=== PATIENT | female | born 1985 | race African-American/Black ===

== ENCOUNTER 2017-02-17 01:39 | Inpatient (IN) | payer OTHER ==
[2017-02-17 01:51] VITALS: BMI 41.1
[2017-02-17] MEDS ORDERED: dilTIAZem HCL 50 MG/10 ML - 10 ML VIAL IVPUSH ONE ×2 (01:58→02:48)
[2017-02-17 02:01] LABS: BASOPHIL 0.9 % (0-2.0); EOSINOPHIL 2.4 % (0-4.5); MCH 25.8 pg (25.7-33.7); MCHC 32.1 g/dl (32.0-36.0); MEAN CELL VOLUME 80.3 fl (80-96); MEAN PLT VOLUME 8.1 fl (7.5-11.1); NEUTROPHILS 41.9 % (42.8-82.8); PLATELET COUNT 245 K/MM3 (134-434); RDW 13.7 % (11.6-15.6); WHITE BLOOD COUNT 7.5 K/mm3 (4.0-10.0)
--- NOTE | 2017-02-17 02:04 | PDOC ---
History of Present Illness - General History Source: Patient Exam Limitations: No Limitations - History of Present Illness Initial Comments: 02/17/17 02:05 Patient is a 31 year old female, , with a significant past medical history of hypertension and sleep apnea who presents to the ED with palpitations for 1 hour before presenting to the ED. Patient states that usually has episodes of palpitations that last for 5 minutes and resolve on their own. Patient reports palpitations with sudden onset that started 1 hour ago and she is still experiencing them while in the ED. Patient did not do her CPAP machine yesterday. Patient has had an ECHO and full cardiology work up by Dr. Vázquez and never was able to capture afib. SH: former smoker quit 10 years ago <Leonora Gan - Last Filed: 02/17/17 02:05> <Maegan Ochoa - Last Filed: 02/17/17 02:53> - General Chief Complaint: Chest Pain Stated Complaint: CHEST PAIN/DIFFICULTY BREATHING Time Seen by Provider: 02/17/17 01:56 Past History <Leonora Gan - Last Filed: 02/17/17 02:05> - Past Medical History HTN: Yes Other medical history: Vertigo - Immunization History Immunization Up to Date: No - Psycho/Social/Smoking Cessation Hx Anxiety: No Suicidal Ideation: No Smoking History: Former smoker Have you smoked in the past 12 months: No If you are a former smoker, when did you quit?: 2016 Information on smoking cessation initiated: No Hx Alcohol Use: No Drug/Substance Use Hx: No <Maegan Ochoa - Last Filed: 02/17/17 02:53> - Past Medical History Allergies/Adverse Reactions: Allergies Allergy/AdvReac Type Severity Reaction Status Date / Time No Known Allergies Allergy Verified 02/17/17 01:50 Home Medications: Ambulatory Orders Amlodipine Besylate [Norvasc -] 10 mg PO DAILY 02/17/17 Meclizine HCl [Antivert -] 25 mg PO DAILY 02/17/17 Review of Systems - Review of Systems Able to Perform ROS?: Yes Comments:: 02/17/17 02:05 GENERAL/CONSTITUTIONAL: No fever or chills. No weakness. HEAD, EYES, EARS, NOSE AND THROAT: No change in vision. No ear pain or discharge. No sore throat. CARDIOVASCULAR: (+)palpitations. No chest pain or shortness of breath. RESPIRATORY: No cough, wheezing, or hemoptysis. GASTROINTESTINAL: No nausea, vomiting, diarrhea or constipation. GENITOURINARY: No dysuria, frequency, or change in urination. MUSCULOSKELETAL: No joint or muscle swelling or pain. No neck or back pain. SKIN: No rash NEUROLOGIC: No headache, vertigo, loss of consciousness, or change in strength/ sensation. ENDOCRINE: No increased thirst. No abnormal weight change. HEMATOLOGIC/LYMPHATIC: No anemia, easy bleeding, or history of blood clots. ALLERGIC/IMMUNOLOGIC: No hives or skin allergy. <Leonora Gan - Last Filed: 02/17/17 02:05> *Physical Exam - Vital Signs Last Vital Signs Temp Pulse Resp BP Pulse Ox 98.3 F 66 18 153/97 100 02/17/17 01:47 02/17/17 01:47 02/17/17 01:47 02/17/17 01:47 02/17/17 01:47 - Physical Exam Comments: 02/17/17 02:06 GENERAL: Awake, alert, and fully oriented, in no acute distress HEAD: No signs of trauma EYES: PERRLA, EOMI, sclera anicteric, conjunctiva clear ENT: Auricles normal inspection, hearing grossly normal, nares patent, oropharynx clear without exudates. Moist mucosa NECK: Normal ROM, supple, no lymphadenopathy, JVD, or masses LUNGS: Breath sounds equal, clear to auscultation bilaterally. No wheezes, and no crackles HEART: Regular rate and rhythm, normal S1 and S2, no murmurs, rubs or gallops ABDOMEN: Soft, nontender, normoactive bowel sounds. No guarding, no rebound. No masses EXTREMITIES: Normal range of motion, no edema. No clubbing or cyanosis. No cords, erythema, or tenderness NEUROLOGICAL: Cranial nerves II through XII grossly intact. Normal speech, normal gait SKIN: Warm, Dry, normal turgor, no rashes or lesions noted. <Leonora Gan - Last Filed: 02/17/17 02:05> - Vital Signs Last Vital Signs Temp Pulse Resp BP Pulse Ox 98.3 F 66 18 153/97 100 02/17/17 01:47 02/17/17 01:47 02/17/17 01:47 02/17/17 01:47 02/17/17 01:47 <Maegan Ochoa - Last Filed: 02/17/17 02:53> ED Treatment Course - LABORATORY CBC & Chemistry Diagram: 02/17/17 01:50 02/17/17 01:50 - ADDITIONAL ORDERS Additional order review: 02/17/17 01:50 RBC 5.57 H MCV 80.3 MCHC 32.1 RDW 13.7 MPV 8.1 Neutrophils % 41.9 L Lymphocytes % 47.0 H Monocytes % 7.8 Eosinophils % 2.4 Basophils % 0.9 <Leonora Gan - Last Filed: 02/17/17 02:05> - LABORATORY CBC & Chemistry Diagram: 02/17/17 01:50 02/17/17 01:50 - RADIOLOGY Radiology Studies Ordered: Category Date Time Status CHEST X-RAY PORTABLE* [RAD] Stat Radiology 02/17/17 01:52 Ordered <Maegan Ochoa - Last Filed: 02/17/17 02:53> Medical Decision Making - Medical Decision Making 02/17/17 02:00 Pt comes with new onset AFIB. She has been complaining of palpitations and she has had holtermonitors and she has seen 2 separate cardiologists on multiple occasions and nobody could ever see the AFIB until today. Paroxysmal afib places pt at risk for CVA. Pt understands this. We will treat the rapid afib with cardizem. Pt is on norvasc 10mg daily. She is compliant with her medication. Pt is tearful in the ER because she is thankful taht we diagnosed her problem, but she is sad that it is a bad diagnosis. Pt will be admitted to the hospitalist, as her PMD [facility] is not affiliated. She has been seeing Dr. Aj and I will place a consult in the computer so that he sees her this admission. 02/17/17 02:13 Pt tells us that she has been a smoker for 10 years and states that she was told for years that she has HTN, and yet she never took meds until last year. Pt also states that she has been gaining weight. Now she is CPAP which she uses at night, and tells me that last night she skipped her CPAP. 02/17/17 02:15 CBC normal; <Maegan Ochoa - Last Filed: 02/17/17 02:53> *DC/Admit/Observation/Transfer - Attestations Scribe Attestion: 02/17/17 02:06 Documentation prepared by PHOEBE Casarez, acting as electromedical equipment technician for Maegan Ochoa MD. <Leonora Gan - Last Filed: 02/17/17 02:05> - Discharge Dispostion Admit: Yes <Maegan Ochoa - Last Filed: 02/17/17 02:53> Diagnosis at time of Disposition: New onset atrial fibrillation, HTN (hypertension), Morbid (severe) obesity due to excess calories - Discharge Dispostion Condition at time of disposition: Guarded - Referrals Referrals: STAFF,NOT ON [Non Staff, Medical] -
[2017-02-17] MEDS ORDERED: SODIUM CHLORIDE 0.9% 500 ML INFUS.BAG IV ONE (02:11)
[2017-02-17 02:12] LABS: INR 0.95 (0.82-1.09); PROTHROMBIN TIME (PATIENT) 10.4 SEC (9.98-11.88)
[2017-02-17 02:15] LABS: ACTIVATED PTT 34.8 SECONDS (26.9-34.4)
[2017-02-17 02:22] LABS: URINE APPEARANCE SLCLOUDY; URINE BILIRUBIN NEGATIVE (NEGATIVE); URINE BLOOD NEGATIVE (NEGATIVE); URINE COLOR YELLOW; URINE GLUCOSE (UA) NEGATIVE (NEGATIVE); URINE KETONE NEGATIVE (NEGATIVE); URINE NITRITE NEGATIVE (NEGATIVE); URINE PROTEIN NEGATIVE (NEGATIVE); URINE UROBILINOGEN NEGATIVE E.U./dl (0.2-1.0)
[2017-02-17] MEDS: APIXABAN 5 MG TABLET PO SCH ×3 (02:23→22:21)
[2017-02-17 02:30] LABS: ALBUMIN 3.7 g/dl (3.4-5.0); ANION GAP 11 (8-16); BILIRUBIN,TOTAL 0.3 mg/dL (0.2-1.0); CALCIUM 8.6 mg/dL (8.5-10.1); CO2 29 mmol/L (21-32); COCKROFT - GAULT 174.2755; CREATININE 1.2 mg/dL (0.55-1.02); GLUCOSE,RANDOM 108 mg/dL (74-106); PHOSPHOROUS 3.5 mg/dL (2.5-4.9); SGPT/ALT 36 U/L (12-78); TOT PROT 7.7 g/dl (6.4-8.2)
[2017-02-17 02:31] LABS: URINE LEUK ESTERASE TRACE (NEGATIVE)
[2017-02-17 02:33] LABS: ALK PHOS 134 U/L (45-117); TROPONIN I < 0.02 ng/ml (0.00-0.05)
[2017-02-17 02:36] LABS: MAGNESIUM 2.1 mg/dL (1.8-2.4); SGOT/AST 26 U/L (15-37)
[2017-02-17 02:38] LABS: URINE BACTERIA RARE /hpf (NONE SEEN); URINE MUCUS FEW; URINE RBC 7 /hpf (0-3); URINE WBC 6 /hpf (3-5)
--- NOTE | 2017-02-17 02:55 | PN ---
Teaching Attending Note Name of Resident: Tarun Garner ATTENDING PHYSICIAN STATEMENT I saw and evaluated the patient. I reviewed the resident's note and discussed the case with the resident. I agree with the resident's findings and plan as documented. SUBJECTIVE: 31 yo F with pmhx of HTN, who presents with Palpitations. States she has had palpitations for one year and has undergone a extensive workup, including a recent echo. Notes she woke up with palpitations this morning and shortness of breath. No chest pain or pressure. No fevers or chills. States she had urinary frequency and urgency. OBJECTIVE: Physical: VS: Vital Signs Period Temp Pulse Resp BP Sys/Matthews Pulse Ox Last 24 Hr 98.3 F 66-147 18-21 153-171/97-108 100-100 GEN: NAD, resting in bed HEENT:NCAT, PERRL CARD: IRR S1, S2 RESP: CTAB ABD:BSX4, NTD to palpation EXT: - C/C/E EKG: Afib rate 110 CXR: Pending ASSESSMENT AND PLAN: 31 yo F with pmhx of HTN and Obesity who presented with palpitations found to be in Atrial Fib. 1.) Afib/?paroxysmal Afib - Trend EKG/Trop - Stat TSH - Cardiac monitoring - Unknown duration of Afib,- Eliquis received in ED - Cardiology Consulted - Echo results to be obtained - C/W Cardizem for rate control - FU CXR 2.) HTN - C/W Home meds 3.) UTI - Ucx - Ceftriaxone Rest as per resident note Admit to Med-Tele
--- NOTE | 2017-02-17 02:58 | HP ---
CHIEF COMPLAINT: PCP: [facility]: Dr Alves HISTORY OF PRESENT ILLNESS: 31 year old female with pmh of HTN, Sleep Apnea presented to the ED with complaint of palpitation. the symptoms wake patient up from sleep with severe chest pain 7/10, pressure substernal non radiating lasting 5mn, accompanied by healing of heart racing, shortness of breath, felling of impending doom and felling like about to pass out. The palpitation slow down and restarted again and lasted 10 mn the second time, she said she had had HR in 150's in prior episodes but this time around her heart was 180's, 190's at home. Pt said the chest pain is new but she has had palpitation on and off for the past year. Pt is currently seeing Dr Alves, she said she had an echo 2 months ago which she said was normal with EF 68%. She had holter studies in the past which did not show anything. Pt was supposed to see Dr Bridges for EPS studies. Pt also complained of fatigue, generalized weakness, tiredness, exercise intolerance, heat and cold intolerance, hair thinning, constipation, abdominal bloating, weight gain of 20lbs in last 2 weeks. She had seen an vegetable farmer and had thyroid function work up and thyroid biopsy before which were normal per her account. Pt also complained urinary frequency and urgency but no dysuria and no gross hematuria. ER course was notable for: (1) cardizem Iv 10mg (2) Eliquis 5mg Po BID (3) CXR, EKG showing AFIB Recent Travel: none PAST MEDICAL HISTORY: Sleep Apnea, HTN PAST SURGICAL HISTORY: Social History: Smoking: denies Alcohol:denies Drugs: denies Family History: diabetes, MVP, thyroid disease, cardiomyopathy Allergies No Known Allergies Allergy (Verified 02/17/17 01:50) HOME MEDICATIONS: Home Medications Medication Instructions Recorded Amlodipine Besylate [Norvasc -] 10 mg PO DAILY 02/17/17 Meclizine HCl [Antivert -] 25 mg PO DAILY 02/17/17 REVIEW OF SYSTEMS CONSTITUTIONAL: generalized weakness, malaise,weight change Absent: fever, chills, diaphoresis, loss of appetite HEENT: Absent: rhinorrhea, nasal congestion, throat pain, throat swelling, difficulty swallowing, mouth swelling, ear pain, eye pain, visual changes CARDIOVASCULAR: chest pain, palpitations, irregular heart rate, lightheadedness , Absent: syncope, peripheral edema RESPIRATORY: shortness of breath Absent: cough, dyspnea with exertion, orthopnea, wheezing, stridor, hemoptysis GASTROINTESTINAL: Absent: abdominal pain, abdominal distension, nausea, vomiting, diarrhea, constipation, melena, hematochezia GENITOURINARY: frequency, urgency Absent: dysuria, hesitancy, hematuria, flank pain, genital pain MUSCULOSKELETAL: Absent: myalgia, arthralgia, joint swelling, back pain, neck pain SKIN: Absent: rash, itching, pallor HEMATOLOGIC/IMMUNOLOGIC: Absent: easy bleeding, easy bruising, lymphadenopathy, frequent infections ENDOCRINE:unexplained weight gain, heat intolerance, cold intolerance Absent: unexplained weight loss NEUROLOGIC: Absent: headache, focal weakness or paresthesias, dizziness, unsteady gait, seizure, mental status changes, bladder or bowel incontinence PSYCHIATRIC: Absent: anxiety, depression, suicidal or homicidal ideation, hallucinations. PHYSICAL EXAMINATION Vital Signs - 24 hr 02/17/17 02/17/17 02/17/17 01:47 02:22 02:29 Temperature 98.3 F Pulse Rate 66 Pulse Rate [ 147 H Apical] Respiratory 18 21 Rate Blood Pressure 153/97 Blood Pressure 171/108 [Left Arm] O2 Sat by Pulse 100 100 Oximetry (%) 02/17/17 02:30 Temperature Pulse Rate Pulse Rate [ Apical] Respiratory Rate Blood Pressure Blood Pressure [Left Arm] O2 Sat by Pulse 100 Oximetry (%) GENERAL: Awake, alert, and fully oriented, in no acute distress. HEAD: Normal with no signs of trauma. EYES: Pupils equal, round and reactive to light, extraocular movements intact, sclera anicteric, conjunctiva clear. No lid lag. EARS, NOSE, THROAT: Ears normal, nares patent, oropharynx clear without exudates. Moist mucous membranes. NECK: Normal range of motion, supple without lymphadenopathy, JVD, or masses. LUNGS: Breath sounds equal, clear to auscultation bilaterally. No wheezes, and no crackles. No accessory muscle use. HEART:irregular rate and irregular rhythm, normal S1 and S2 without murmur, rub or gallop. ABDOMEN: Soft, obese, nontender, not distended, normoactive bowel sounds, no guarding, no rebound, no masses. No hepatomegaly or splenomegaly. MUSCULOSKELETAL: Normal range of motion at all joints. No bony deformities or tenderness. No CVA tenderness. UPPER EXTREMITIES: 2+ pulses, warm, well-perfused. No cyanosis. No clubbing. No peripheral edema. LOWER EXTREMITIES: 2+ pulses, warm, well-perfused. No calf tenderness. No peripheral edema. NEUROLOGICAL: Cranial nerves II-XII intact. Normal speech. Normal gait. PSYCHIATRIC: Cooperative. Good eye contact. Appropriate mood and affect. SKIN: Warm, dry, normal turgor, no rashes or lesions noted, normal capillary refill. Laboratory Results - last 24 hr 02/17/17 02/17/17 02/17/17 01:50 01:50 01:50 WBC 7.5 RBC 5.57 H Hgb 14.4 Hct 44.7 MCV 80.3 MCHC 32.1 RDW 13.7 Plt Count 245 MPV 8.1 Neutrophils % 41.9 L Lymphocytes % 47.0 H Monocytes % 7.8 Eosinophils % 2.4 Basophils % 0.9 INR 0.95 PTT (Actin FS) 34.8 H Sodium 142 Potassium 4.2 Chloride 102 Carbon Dioxide 29 Anion Gap 11 BUN 14 Creatinine 1.2 H Creat Clearance w eGFR 51.74 Random Glucose 108 H Calcium 8.6 Phosphorus 3.5 Magnesium 2.1 Total Bilirubin 0.3 AST 26 ALT 36 Alkaline Phosphatase 134 H Creatine Kinase 222 H Troponin I < 0.02 Total Protein 7.7 Albumin 3.7 Urine Color Urine Appearance Urine pH Urine Protein Urine Glucose (UA) Urine Ketones Urine Blood Urine Nitrite Urine Bilirubin Urine Urobilinogen Ur Leukocyte Esterase Urine RBC Urine WBC Ur Epithelial Cells Urine Bacteria Urine Mucus Urine HCG, Qual 02/17/17 02/17/17 02:00 02:10 WBC RBC Hgb Hct MCV MCHC RDW Plt Count MPV Neutrophils % Lymphocytes % Monocytes % Eosinophils % Basophils % INR PTT (Actin FS) Sodium Potassium Chloride Carbon Dioxide Anion Gap BUN Creatinine Creat Clearance w eGFR Random Glucose Calcium Phosphorus Magnesium Total Bilirubin AST ALT Alkaline Phosphatase Creatine Kinase Troponin I Total Protein Albumin Urine Color Yellow Urine Appearance Slcloudy Urine pH 5.0 Urine Protein Negative Urine Glucose (UA) Negative Urine Ketones Negative Urine Blood Negative Urine Nitrite Negative Urine Bilirubin Negative Urine Urobilinogen Negative Ur Leukocyte Esterase Trace H Urine RBC 7 Urine WBC 6 Ur Epithelial Cells Moderate Urine Bacteria Rare Urine Mucus Few Urine HCG, Qual Negative ASSESSMENT/PLAN: 31 year old female with pmh of HTN, Sleep Apnea presented to the ED with complaint of palpitation, shortness of breath and chest pressure. Pt was found to be in AFIB. Paroxismal AFIB [id number] score 2, consider high risk with yearly risk of stroke of 2.2%. Requires oral anticoagulation Received cardizem IV an Eliquis Po in ED Start Cardizem PO 30mg q6h Continue Eliquis Dr Almanza consulted Consider Echo if prior echo result not available from Dr alves Chest pain r/o ACS Consider Aspirin 325mg PO EKG showed no ST/twave changes Will repeat ekg in am Cardiac profile in am [facility] consult Generalized weakness r/o Hypothyroidism, vit b12 deficiency, Crhonic fatigue syndrome No electrolytes imbalance per chemistries result Pt is no longer on betablocker TSH in Am Vitamin B12 Folate Consider EBV, RAMSES, RF, and Lyme titers UTI UA with positive leuk est urinary frequency and urgency Will treat with ceftriaxone urine culture HTN Resume Norvac Sleep Apnea CPAP at night FEN Fluid: none electrolytes: no abnormalities Nutrition: low NA diet DVT prophylaxis: Eliquis Disposition: Admit to telemetry Visit type - Emergency Visit Emergency Visit: Yes ED Registration Date: 02/17/17 Care time: The patient presented to the Emergency Department on the above date and was hospitalized for further evaluation of their emergent condition. - New Patient This patient is new to me today: Yes Date on this admission: 02/17/17 - Critical Care Critical Care patient: No
[2017-02-17] MEDS ORDERED: dilTIAZem HCL 30 MG TABLET (FP) PO SCH (04:00)
[2017-02-17] MEDS ORDERED: dilTIAZem HCL 30 MG TABLET (FP) ONE ×2 (04:35→13:05)
[2017-02-17] MEDS: dilTIAZem HCL 30 MG TABLET (FP) PO SCH ×3 (04:35→12:59)
[2017-02-17] MEDS ORDERED: MECLIZINE HCL 25 MG TABLET (FP) PO PRN (05:55)
[2017-02-17] MEDS ORDERED: CEFTRIAXONE 50 ML ONE (08:21)
[2017-02-17] MEDS: cefTRIAXone 1 GM/50 ML BAG (PRE-DOCKED) IVPB SCH (08:30)
[2017-02-17 08:55] LABS: TROPONIN I 0.03 ng/ml (0.00-0.05)
[2017-02-17] MEDS ORDERED: amLODIPine BESYLATE 10 MG TABLET (FP) PO SCH (10:00)
[2017-02-17] MEDS ORDERED: CEFTRIAXONE 1 GM in DEXTROSE 5%-WATER - 50 ML IVPB SCH (10:00)
--- NOTE | 2017-02-17 10:26 | EKG ---
Test Reason : Blood Pressure : / mmHG Vent. Rate : 085 BPM Atrial Rate : 085 BPM P-R Int : 182 ms QRS Dur : 090 ms QT Int : 368 ms P-R-T Axes : 056 051 026 degrees QTc Int : 437 ms NORMAL SINUS RHYTHM NORMAL ECG WHEN COMPARED WITH ECG OF 17-FEB-2017 02:06, SINUS RHYTHM HAS REPLACED ATRIAL FIBRILLATION Confirmed by MD ASHKAN, EDIE ([id number]) on 02/17/2017 10:26:14 AM Referred By: KAVIN LEE Confirmed By:EDIE LUTHER MD
[2017-02-17] MEDS ORDERED: amLODIPine BESYLATE 5 MG TABLET (FP) ONE (10:29)
--- NOTE | 2017-02-17 12:43 | CON.CARD ---
Consult - History of Present Illness History of Present Illness: Patient is a 31 year old female, , with a significant past medical history of hypertension and sleep apnea who presents to the ED with palpitations for 1 hour before presenting to the ED. Patient states that usually has episodes of palpitations that last for 5 minutes and resolve on their own. Patient reports palpitations with sudden onset that started 1 hour ago and she is still experiencing them while in the ED. Patient did not do her CPAP machine yesterday. Patient has had an ECHO and full cardiology work up by Dr. Vázquez and never was able to capture afib. SH: former smoker quit 10 years ago PMH HTN diagnosed 2012 Thyroid nodule ? SVT episodes sleep apnea PAF [facility]. January 2017 - History Source History Provided By: Patient, Medical Record - Alcohol/Substance Use Hx Alcohol Use: No - Smoking History Smoking history: Former smoker Have you smoked in the past 12 months: No If you are a former smoker, when did you quit?: 2016 Home Medications - Allergies Allergies/Adverse Reactions: Allergies Allergy/AdvReac Type Severity Reaction Status Date / Time No Known Allergies Allergy Verified 02/17/17 01:50 - Home Medications Home Medications: Ambulatory Orders Amlodipine Besylate [Norvasc -] 10 mg PO DAILY 02/17/17 Cholecalciferol (Vitamin D3) [Vitamin D -] 3,000 units PO DAILY 02/17/17 Meclizine HCl [Antivert -] 25 mg PO DAILY 02/17/17 Review of Systems - Review of Systems Cardiovascular: reports: Palpitations Vital Signs: Vital Signs Temperature 98.3 F 02/17/17 05:15 Pulse Rate 84 02/17/17 07:38 Respiratory Rate 20 02/17/17 07:38 Blood Pressure 115/63 02/17/17 07:38 O2 Sat by Pulse Oximetry (%) 100 02/17/17 07:38 Constitutional: Yes: Well Nourished, No Distress, Calm Eyes: Yes: WNL, Conjunctiva Clear, EOM Intact HENT: Yes: WNL, Atraumatic, Normocephalic Neck: Yes: WNL, Supple, Trachea Midline Respiratory: Yes: WNL, Regular, CTA Bilaterally Gastrointestinal: Yes: WNL, Normal Bowel Sounds Renal/: Yes: WNL Cardiovascular: Yes: WNL, Regular Rate and Rhythm Musculoskeletal: Yes: WNL Extremities: Yes: WNL Integumentary: Yes: WNL Neurological: Yes: WNL, Alert, Oriented ...Motor Strength: WNL Psychiatric: Yes: WNL, Alert, Oriented - Other Data Labs, Other Data: INR, PTT INR 0.95 (0.82-1.09) 02/17/17 01:50 Troponin, BNP 02/17/17 07:40 Troponin I 0.03 Troponin, BNP 02/17/17 07:40 Troponin I 0.03 Imaging - Results Chest X-ray: Image Reviewed EKG: Image Reviewed (# 1 af vr 120 #2 nsr) Assessment/Plan paf sleep apnea htn morbid obesity uti Plan Telemetry ac d/c norvasc add lodose toprol ( did not tolerated dose before) will need ep eval for possible ablation abx for UTI
[2017-02-17] MEDS: CHOLECALCIFEROL (VITAMIN D3) 1,000 UNIT TABLET (FP) PO SCH (13:11)
--- NOTE | 2017-02-17 13:51 | PN ---
Physical Exam: SUBJECTIVE: Patient seen and examined in the ER. She is currently waiting for a tele bed. She denies any shortness of breath or chest pain. States she feels better. OBJECTIVE: In no acute distress, vitals stable ER hold, waiting tele bed Troponins negative x 2, awaiting 3rd trop. TSH wnl, b12 wnl, hmga1c 5.8 Manager [employer] consulted Vital Signs Period Temp Pulse Resp BP Sys/Matthews Pulse Ox Last 24 Hr 98.3 F-98.4 F 66-95 16-20 115-138/63-83 96-100 GENERAL: The patient is awake, alert, and fully oriented, in no acute distress. HEAD: Normal with no signs of trauma. EYES: PERRL, extraocular movements intact, sclera anicteric, conjunctiva clear. No ptosis. ENT: Ears normal, nares patent, oropharynx clear without exudates, moist mucous membranes. NECK: Trachea midline, full range of motion, supple. LUNGS: Breath sounds equal, clear to auscultation bilaterally ABDOMEN: Soft, nontender, nondistended, normoactive bowel sounds, no guarding, no rebound, no hepatosplenomegaly, no masses. NEUROLOGICAL: Normal speech, gait not observed. PSYCH: Normal mood, normal affect. SKIN: Warm, dry, normal turgor, no rashes or lesions noted Laboratory Results - last 24 hr 02/17/17 02/17/17 02/17/17 07:40 07:40 07:40 ESR 3 Hemoglobin A1c % 5.8 Creatine Kinase 156 D Troponin I 0.03 Vitamin B12 589 Active Medications Generic Name Dose Route Start Last Admin Trade Name Ilana PRN Reason Stop Dose Admin Amlodipine Besylate 10 mg 02/17/17 10:00 02/17/17 10:30 Norvasc - PO [address] Administration Apixaban 5 mg 02/17/17 02:00 02/17/17 13:11 Eliquis - PO [address] Administration Ceftriaxone Sodium 1 gm 02/17/17 08:00 02/17/17 08:30 Rocephin 1gm Ivpb (Pre-Docked) IVPB [address] Administration Cholecalciferol 3,000 unit 02/17/17 10:00 02/17/17 13:11 Vitamin D3 - PO 3,[address] Administration Diltiazem HCl 30 mg 02/17/17 06:00 02/17/17 12:59 Cardizem - PO [address] Administration Meclizine HCl 25 mg 02/17/17 05:55 Antivert - PO DAILY PRN VERTIGO ASSESSMENT/PLAN: Patient is a 31 year old female with a significant past medical history of hypertension and obesity. 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 She was admitted on 02/16/2017 with new onset atrial fibrillation. On exam she denies any chest pain or palpitations or shortness of breath. Cardiology: Paroxysmal Atrial Fibrillation - new onset Assessment/Plan: Troponins x 3 negative Started on Metoprolol 12.5 On Cardizem 30mg PO q6 On Eliquis 50mg BID Monitor on tele Chest Pain rule out ACS Assessment/Plan: On ASA 81mg daily EKG reviewed, no ST wave changes seen Troponins negative x 3 Hypertension - chronic Assessment/Plan: Norvasc d/cd and Toprol 12.5 mg added by cardiology Monitor BP Endocrine: HmgA1c 5.8, boderline diabetes Monitor serum blood glucose Renal: Urinary Tract Infection - acute Assessment/Plan: +urinary frequency Urine culture pending On Rocephin (day 1) F.E.N. Fluids: tolerating PO Electrolytes: monitor withl abs Nutrition: low sodium diet Prophylaxis: DVT: On Eliquis GI: deferred Disposition: Telemonitoring. Full Code. Visit type - Emergency Visit Emergency Visit: Yes ED Registration Date: 02/17/17 Care time: The patient presented to the Emergency Department on the above date and was hospitalized for further evaluation of their emergent condition. - New Patient This patient is new to me today: Yes Date on this admission: 02/18/17 - Critical Care Critical Care patient: No - Discharge Referral Referred to [facility] Med P.C.: No
--- NOTE | 2017-02-17 14:01 | EKG ---
Test Reason : Blood Pressure : / mmHG Vent. Rate : 117 BPM Atrial Rate : 110 BPM P-R Int : 000 ms QRS Dur : 094 ms QT Int : 322 ms P-R-T Axes : 000 067 005 degrees QTc Int : 449 ms ATRIAL FIBRILLATION WITH RAPID VENTRICULAR RESPONSE ABNORMAL ECG NO PREVIOUS ECGS AVAILABLE Confirmed by ARLETH GALVAN MD ([id number]) on 02/17/2017 2:01:25 PM Referred By: Confirmed By:ARLETH GALVAN MD
[2017-02-17] MEDS: METOPROLOL SUCCINATE 25 MG TAB.SR.24H (FP) PO SCH (18:25)
[2017-02-18 08:34] VITALS: BP 129/85; TEMP 98.7
[2017-02-18] MEDS: METOPROLOL SUCCINATE 25 MG TAB.SR.24H (FP) PO SCH (09:22)
[2017-02-18] MEDS: CHOLECALCIFEROL (VITAMIN D3) 1,000 UNIT TABLET (FP) PO SCH (09:22)
[2017-02-18] MEDS: cefTRIAXone 1 GM/50 ML BAG (PRE-DOCKED) IVPB SCH (09:23)
[2017-02-18] MEDS: APIXABAN 5 MG TABLET PO SCH (09:23)
[2017-02-18 10:39] VITALS: PULSE 72
--- NOTE | 2017-02-18 13:17 | PN ---
Progress Note, Physician Chief Complaint: Pt A&Ox3; feels better (no palpitations, chest pain, dyspnea0. History of Present Illness: Patient is a 31 year old black female, , with a significant past medical history of hypertension, obesity, cigarettes (quit one year ago), anxieyt, and sleep apnea who presents to the ED with palpitations for 1 hour before presenting to the ED. Patient states that usually has episodes of palpitations that last for 5 minutes and resolve on their own. Patient reports palpitations with sudden onset that started 1 hour ago and she is still experiencing them while in the ED. Patient did not do her CPAP machine yesterday. Patient has had an ECHO and full cardiology work up by Dr. Vázquez and never was able to capture afib. SH: former smoker quit 10 years ago - Current Medication List Current Medications: Active Medications Apixaban (Eliquis -) 5 mg PO BID [facility] Last Admin: 02/18/17 09:23 Dose: 5 mg Ceftriaxone Sodium (Rocephin 1gm Ivpb (Pre-Docked)) 1 gm IVPB DAILY [facility] Last Admin: 02/18/17 09:23 Dose: 1 gm Cholecalciferol (Vitamin D3 -) 3,000 unit PO DAILY [facility] Last Admin: 02/18/17 09:22 Dose: 3,000 unit Diltiazem HCl (Cardizem Cd -) 120 mg PO DAILY [facility] Last Admin: 02/18/17 09:23 Dose: 120 mg Meclizine HCl (Antivert -) 25 mg PO DAILY PRN PRN Reason: VERTIGO Metoprolol Succinate (Toprol Xl -) 12.5 mg PO DAILY [facility] Last Admin: 02/18/17 09:22 Dose: 12.5 mg - Objective Vital Signs: Vital Signs Temperature 98.7 F 02/18/17 08:33 Pulse Rate 72 02/18/17 10:39 Respiratory Rate 20 02/18/17 09:00 Blood Pressure 129/85 02/18/17 08:33 O2 Sat by Pulse Oximetry (%) 95 02/18/17 10:39 Constitutional: Yes: No Distress Eyes: Yes: WNL HENT: Yes: WNL Neck: Yes: WNL Cardiovascular: Yes: Regular Rate and Rhythm Respiratory: Yes: Regular Gastrointestinal: Yes: Normal Bowel Sounds, Abdomen, Obese ...Rectal Exam: Yes: Deferred Genitourinary: No: Anuria Breast(s): Yes: WNL Musculoskeletal: Yes: WNL Extremities: Yes: WNL Edema: No Peripheral Pulses WNL: Yes Integumentary: Yes: WNL Neurological: Yes: WNL Psychiatric: Yes: WNL Labs: INR, PTT INR 0.95 (0.82-1.09) 02/17/17 01:50 - ....Imaging Other: Image Reviewed (telemetry: normal sinus rhythm) Problem List - Problems (1) HTN (hypertension) Assessment/Plan: Continue present medications. TSH WNL. F/u lipid profile., Code(s): I10 - ESSENTIAL (PRIMARY) HYPERTENSION (2) Morbid (severe) obesity due to excess calories Code(s): E66.01 - MORBID (SEVERE) OBESITY DUE TO EXCESS CALORIES (3) New onset atrial fibrillation Assessment/Plan: Continue diltiazem, metoprolol, and apixaban. Pt was encouraged to follow heart-healthy diet, with portion control and increase in exercise as aids to losing weight. The potential benefit of weight loss in reducing episodes of AF was discussed. From a cardiac standpoint, pt may be followed as an outpatient. She is to see Drs. Dav Diaz, egg grader, and Dr. Aj in follow- up. Code(s): I48.91 - UNSPECIFIED ATRIAL FIBRILLATION
[2017-02-18 13:36] LABS: HIV 1 & 2 AB NEGATIVE; HIV 1 AGp24 NEGATIVE
[2017-02-18 14:19] LABS: CHOLESTEROL 183 mg/dL (50-200); LDL CHOLESTEROL (ONLY SJRH) 104 mg/dL (5-100)
--- NOTE | 2017-02-18 14:19 | DS ---
Physical Exam: SUBJECTIVE: Patient seen and examined. She denies chest pain or palpitations. She denies shortness of breath OBJECTIVE: Vital Signs Period Temp Pulse Resp BP Sys/Matthews Pulse Ox Last 24 Hr 97.0 F-98.7 F 72-89 18-20 120-141/59-89 95-99 PHYSICAL EXAM GENERAL: The patient is awake, alert, and fully oriented, in no acute distress. HEAD: Normal with no signs of trauma. EYES: PERRL, extraocular movements intact, sclera anicteric, conjunctiva clear. No ptosis. ENT: Ears normal, nares patent, oropharynx clear without exudates, moist mucous membranes. NECK: Trachea midline, full range of motion, supple. LUNGS: Breath sounds equal, clear to auscultation bilaterally ABDOMEN: Soft, nontender, nondistended, normoactive bowel sounds, no guarding, no rebound, no hepatosplenomegaly, no masses. NEUROLOGICAL: Normal speech, gait not observed. PSYCH: Normal mood, normal affect. SKIN: Warm, dry, normal turgor, no rashes or lesions noted LABS Laboratory Results - last 24 hr 02/17/17 02/17/17 02/18/17 07:40 16:00 11:00 Troponin I 0.02 Rheumatoid Arth Biomark < 10.0 HIV 1&2 Antibody Screen Negative HIV P24 Antigen Negative HOSPITAL COURSE: Date of Admission:02/17/17 Date of Discharge: 02/18/17 Patient is a 31 year old female with a significant past medical history of hypertension and obesity. She states that she has had palpitations intermittently for approximately one year and has undergone extensive outpatient workup with audiology technician. She was admitted on 02/16/2017 with new onset atrial fibrillation. On exam she denies any chest pain or palpitations or shortness of breath. Cardiology: Paroxysmal Atrial Fibrillation - new onset Assessment/Plan: Troponins x 3 negative Started on Metoprolol 12.5 BID, On Cardizem 120mg daily, On Eliquis 50mg BID To be followed as an outpatient with Dr Diaz Chest Pain rule out ACS - resolved Assessment/Plan: On Eliquis EKG reviewed, no ST wave changes seen Troponins negative x 3 Hypertension - chronic Assessment/Plan: Norvasc d/cd and Toprol 12.5 mg added by cardiology Hyperlipidemia - acute Assessment/Plan: lipid panel reviewed, started on Lipitor Endocrine: HmgA1c 5.8, boderline diabetes Outpatient follow up Renal: Urinary Tract Infection Assessment/Plan: Received Ceftriaxone x 2 doses Continue Keflex for 5 more days Disposition: Cleared by Cardiology for discharge. Full Code. Minutes to complete discharge: 60 Discharge Summary Reason For Visit: NEW ONSET AFIB, HYPERTENSION, MORBID OBESE Current Active Problems HTN (hypertension) (Acute) Morbid (severe) obesity due to excess calories (Acute) New onset atrial fibrillation (Acute) Condition: Stable - Instructions Diet, Activity, Other Instructions: Mrs. Martel: Please continue the Diltiazem, Metoprolol and Apixaban as prescribed. Keflex twice per day for the UTI for 3 more days Please follow up your urologist and Dr. Dav Diaz (electrophysiologis) for possible ablation Please follow a heart healthy low salt diet with portion control. Increase in exercise is also recommended as discussed with the audiology technician. Please call me with any questions you may have. Radha Gomez HABILITATION TRAINING SPECIALIST [phone] Referrals: Pascual Aj MD [Staff Physician] - STAFF,NOT ON [Non Staff, Medical] - Disposition: HOME - Home Medications Comprehensive Discharge Medication List: Ambulatory Orders Cholecalciferol (Vitamin D3) [Vitamin D -] 3,000 units PO DAILY 02/17/17 Meclizine HCl [Antivert -] 25 mg PO DAILY 02/17/17 Apixaban [Eliquis -] 5 mg PO BID #60 tablet 02/18/17 Cephalexin [Keflex] 250 mg PO BID #6 capsule 02/18/17 Diltiazem Cd [Cardizem Cd -] 120 mg PO DAILY #30 tab 02/18/17 Metoprolol Succinate [Toprol XL -] 12.5 mg PO DAILY #30 tab 02/18/17 This patient is new to me today: No Emergency Visit: Yes ED Registration Date: 02/17/17 Care time: The patient presented to the Emergency Department on the above date and was hospitalized for further evaluation of their emergent condition. Critical Care patient: No - Discharge Referral Referred to [facility] Med P.C.: No
[2017-02-18] MEDS ORDERED: ATORVASTATIN CA 20 MG TABLET (FP) PO SCH (22:00)
[2017-02-19 06:06] LABS: HEMATOCRIT 40.6 % (34.0-46.6)
== END 2017-02-18 14:56 | disposition home or self-care (01) | DRG 201 ==
LOC: JER 01:39 → JERBED 02:53 → UNDOADMIN 03:20 → JERBED 03:20 → J4W 18:40
PROVIDERS: ADMIT Internal Medicine; ATTEND Nurse Practitioner Family
DX: I48.0 Paroxysmal atrial fibrillation (principal); N39.0 Urinary tract infection, site not specified; E66.01 Morbid (severe) obesity due to excess calories; Z68.41 Body mass index [BMI] 40.0-44.9, adult; I10 Essential (primary) hypertension; G47.30 Sleep apnea, unspecified; Z87.891 Personal history of nicotine dependence; F41.9 Anxiety disorder, unspecified; E78.5 Hyperlipidemia, unspecified; I42.9 Cardiomyopathy, unspecified
CPT/HCPCS: 36415; 71010-TC; 80053; 80061; 81003; 81015; 82550; 82553; 82607; 82747; 83036; 83721; 83735; 84100; 84443; 84484; 84703; 85014; 85025; 85610; 85651; 85730; 86038; 86431; 87389; 93005; 93010; 94660; 99285-25

== ENCOUNTER 2018-10-07 08:39 | Observation (INO) | payer OTHER ==
[2018-10-07 08:54] VITALS: BMI 47.0
--- NOTE | 2018-10-07 09:18 | PDOC ---
History of Present Illness - History of Present Illness Initial Comments: The patient is a 33 year old female, with a significant PMH of HTN, A-fib ( compliant with Eliquis), and vertigo, who presents to the emergency department today complaining of LE cramping for 3 days, and chills/sweats, increased heart rate, and chest pain for 2 days. Patient notes that she began experiencing bilateral LE cramping 3 days ago, starting at her thighs and radiating down her calves. Patient notes that the cramping became so severe that is began debilitating her walking. Patient reports that later that day she slept for 20+ hours, which provided her with some relief for cramping but notes she still felt exhausted. Upon waking up this morning, she states she experienced chills/ sweats, increased heart rate, and chest pain. Patient notes she woke up in a pool of sweat, but denied having a fever. She notes her heart rate was increased to 120 (baseline is 90-100). Patient also reports chest pain, that she describes as pressure which she believes is related to indigestion. She rates it as a 6/10, which is exacerbated with sitting up but is alleviated while lying down. Patient also notes that she does feel dizzy and SOB, but this is her baseline secondary to her A-fib. Patient reports that she took all of her daily medications this morning. She confirms multiple sick contacts and had a fever approximately 2 weeks ago, but does note that she is up to date on her flu vaccination. The patient denies headache. Denies fever, nausea, vomit, diarrhea and constipation. Denies dysuria, frequency, urgency and hematuria. Allergies: NKA Past surgical history: None reported Social history: No reported PCP: Dr. Galan Car Head Liner Installer: Dr. Santoyo 10/07/18 10:31 <Wanda Nunes - Last Filed: 10/07/18 13:37> - General History Source: Patient Exam Limitations: No Limitations <Dary Hernandez - Last Filed: 10/07/18 14:08> - General Chief Complaint: Pain Stated Complaint: WEAKNESS, RT LEG PAIN, CHEST PAIN Time Seen by Provider: 10/07/18 09:18 Past History <Wanda Nunes - Last Filed: 10/07/18 13:37> - Past Medical History Cardiac Disorders: Yes (AFIB) COPD: No HTN: Yes Other medical history: PCOS, ENLARGED THYROID, SLEEP APNEA - Immunization History Immunization Up to Date: No - Suicide/Smoking/Psychosocial Hx Smoking History: Never smoked Have you smoked in the past 12 months: No If you are a former smoker, when did you quit?: 2016 Information on smoking cessation initiated: No Hx Alcohol Use: No Drug/Substance Use Hx: No Substance Use Type: None Hx Substance Use Treatment: No <Dary Hernandez - Last Filed: 10/07/18 14:08> - Past Medical History Allergies/Adverse Reactions: Allergies Allergy/AdvReac Type Severity Reaction Status Date / Time No Known Allergies Allergy Verified 10/07/18 08:54 Home Medications: Ambulatory Orders Cholecalciferol (Vitamin D3) [Vitamin D -] 3,000 units PO DAILY 02/17/17 Apixaban [Eliquis -] 5 mg PO BID #60 tablet 02/18/17 Diltiazem Cd [Cardizem Cd -] 120 mg PO DAILY #30 tab 02/18/17 Metoprolol Succinate [Toprol XL -] 12.5 mg PO DAILY #30 tab 02/18/17 Review of Systems - Review of Systems Comments:: GENERAL/CONSTITUTIONAL: +Chills/sweats. No fever. No weakness. HEAD, EYES, EARS, NOSE AND THROAT: No change in vision. No ear pain or discharge. No sore throat. CARDIOVASCULAR: +Chest pressure. +SOB. +Increased heart rate (120) RESPIRATORY: No cough, wheezing, or hemoptysis. GASTROINTESTINAL: No nausea, vomiting, diarrhea or constipation. GENITOURINARY: No dysuria, frequency, or change in urination. MUSCULOSKELETAL: +Bilateral LE cramping. No joint or muscle swelling. No neck or back pain. SKIN: No rash NEUROLOGIC: +Dizzy. No headache, vertigo, loss of consciousness, or change in strength/sensation. ENDOCRINE: No increased thirst. No abnormal weight change. HEMATOLOGIC/LYMPHATIC: No anemia, easy bleeding, or history of blood clots. ALLERGIC/IMMUNOLOGIC: No hives or skin allergy. 10/07/18 10:33 <Wanda Nunes - Last Filed: 10/07/18 13:37> *Physical Exam - Vital Signs Last Vital Signs Temp Pulse Resp BP Pulse Ox 98.7 F 105 H 22 H 138/85 99 10/07/18 08:51 10/07/18 10:29 10/07/18 10:29 10/07/18 08:51 10/07/18 10:29 - Physical Exam Comments: GENERAL: The patient is in no acute distress. HEAD: Normal with no signs of trauma. EYES: PERRLA, EOMI, sclera anicteric, conjunctiva clear. ENT: Ears normal, nares patent, oropharynx clear without exudates. Moist mucous membranes. NECK: Normal range of motion, supple without lymphadenopathy, JVD, or masses. LUNGS: Breath sounds equal, clear to auscultation bilaterally. No wheezes, and no crackles. HEART:+Tachycardic. Normal S1 and S2 without murmur, rub or gallop. ABDOMEN: Soft, nontender, normoactive bowel sounds. No guarding, no rebound. No masses palpable. EXTREMITIES: Normal range of motion, no edema. No clubbing or cyanosis. No erythema, or tenderness. NEUROLOGICAL: Cranial nerves II through XII grossly intact. Normal speech. No focal neurological deficits. MUSCULOSKELETAL: Back non-tender to palpation, no CVA tenderness SKIN: Warm, Dry, normal turgor, no rashes or lesions noted. 10/07/18 10:34 <Wanda Nunes - Last Filed: 10/07/18 13:37> - Vital Signs Last Vital Signs Temp Pulse Resp BP Pulse Ox 98.7 F 128 H 19 138/85 98 10/07/18 08:51 10/07/18 08:51 10/07/18 08:51 10/07/18 08:51 10/07/18 08:51 <Dary Hernandez - Last Filed: 10/07/18 14:08> Moderate Sedation - Procedure Monitoring Vital Signs: Procedure Monitoring Vital Signs Temperature 98.7 F 10/07/18 08:51 Pulse Rate 105 H 10/07/18 10:29 Respiratory Rate 22 H 10/07/18 10:29 Blood Pressure 138/85 10/07/18 08:51 O2 Sat by Pulse Oximetry (%) 99 10/07/18 10:29 <Wanda Nunes - Last Filed: 10/07/18 13:37> - Procedure Monitoring Vital Signs: Procedure Monitoring Vital Signs Temperature 98.7 F 10/07/18 08:51 Pulse Rate 128 H 10/07/18 08:51 Respiratory Rate 19 10/07/18 08:51 Blood Pressure 138/85 10/07/18 08:51 O2 Sat by Pulse Oximetry (%) 98 10/07/18 08:51 <Dary Hernandez - Last Filed: 10/07/18 14:08> Heart Score/ECG Review - ECG Intrepretation Comment:: Sinus tachycardia. Possible left atrial enlargement. Rightward axis. Borderline ECG. 10/07/18 12:06 <Wanda Nunes - Last Filed: 10/07/18 13:37> ED Treatment Course - LABORATORY CBC & Chemistry Diagram: 10/07/18 09:20 10/07/18 09:20 - ADDITIONAL ORDERS Additional order review: Laboratory Results 10/07/18 10/07/18 09:20 09:20 PT with INR 16.40 H INR 1.39 H B-Natriuretic Peptide Cancelled 10/07/18 09:20 RBC 6.01 H MCV 79.8 L MCHC 31.4 L RDW 14.3 MPV 7.6 Neutrophils % 73.9 D Lymphocytes % 14.9 D Monocytes % 6.2 Eosinophils % 4.7 H D Basophils % 0.3 - RADIOLOGY Radiograph Interpretation: EXAM#: TYPE/EXAM: RESULT: [id number] RAD/CHEST X-RAY PORTABLE* Chest pain. Impression. No evidence of active pulmonary disease. Reported By: Amol Benson MD 10/07/18 11:29 10/07/18 11:35 - Medications Given in the ED: ED Medications Discontinued Medications Generic Name Dose Route Start Last Admin Trade Name Ilana PRN Reason Stop Dose Admin Acetaminophen 1,000 mg 10/07/18 10:20 10/07/18 10:29 Ofirmev Injection - IVPB 10/07/18 10:21 1,000 mg ONCE ONE Administration - Consult/PCP Time Called: 13:38 Case discussed with personal care physician: Geneva Valdes (Spoke with Dr. Keisha reeves patient's care) <Wanda Nunes - Last Filed: 10/07/18 13:37> - LABORATORY CBC & Chemistry Diagram: 10/07/18 09:20 10/07/18 09:20 <aDry Hernandez - Last Filed: 10/07/18 14:08> Medical Decision Making - Medical Decision Making 10/07/18 14:02 EKG: normal sinus rhythm, rate of 117 bpm, axis nml, intervals nml, no st elevation or depression, Right johns axis 10/07/18 14:03 Laboratory Tests 10/07/18 10/07/18 10/07/18 09:20 09:20 09:20 WBC 10.5 H Hgb 15.1 Hct 47.9 H Plt Count 271 Neutrophils % 73.9 D Lymphocytes % 14.9 D INR 1.39 H BUN 10 Creatinine 1.3 Random Glucose 109 H Creatine Kinase 265 H Creatine Kinase Index 0.3 CK-MB (CK-2) 1.0 Troponin I < 0.02 TSH 0.17 L Influenza A (Rapid) Influenza B (Rapid) 10/07/18 10:00 WBC Hgb Hct Plt Count Neutrophils % Lymphocytes % INR BUN Creatinine Random Glucose Creatine Kinase Creatine Kinase Index CK-MB (CK-2) Troponin I TSH Influenza A (Rapid) Negative Influenza B (Rapid) Negative Pt persistently tachycardiac, though this has improved No chest pain now Case reviewed with Dr Valdes Will place on observation TSH sent, pt is hyperthyroid Clinical impression: tachycardia, initial presentation relative hypotension, initial presentation Dehydration, initial presentation Hyperthyroid, initial presentation <Dary Hernandez - Last Filed: 10/07/18 14:08> *DC/Admit/Observation/Transfer - Attestations Scribe Attestion: Documentation prepared by PHOEBE Saldivar, acting as medical records manager for Dary Hernandez MD/DO. 10/07/18 10:34 <Wanda Nunes - Last Filed: 10/07/18 13:37> - Discharge Dispostion Decision to Admit order: Yes <Dary Hernandez - Last Filed: 10/07/18 14:08> Diagnosis at time of Disposition: Tachycardia, Weakness HTN (hypertension) Qualifiers: Hypertension type: unspecified Qualified Code(s): I10 - Essential (primary) hypertension - Discharge Dispostion Condition at time of disposition: Stable - Referrals Referrals: Raul Galan [Primary Care Provider] - - Patient Instructions - Post Discharge Activity
[2018-10-07 09:35] LABS: BASO % 0.3 % (0-2.0); EOS % 4.7 % (0-4.5); HEMATOCRIT 47.9 % (32.4-45.2); HEMOGLOBIN 15.1 GM/dL (10.7-15.3); LYMPH % 14.9 % (8-40); MCH 25.1 pg (25.7-33.7); MCHC 31.4 g/dl (32.0-36.0); MEAN CELL VOLUME 79.8 fl (80-96); MEAN PLT VOLUME 7.6 fl (7.5-11.1); MONO % 6.2 % (3.8-10.2); NEUT % 73.9 % (42.8-82.8); PLATELET COUNT 271 K/MM3 (134-434); RBC 6.01 M/mm3 (3.60-5.2); RDW 14.3 % (11.6-15.6); WHITE BLOOD COUNT 10.5 K/mm3 (4.0-10.0)
[2018-10-07 09:49] LABS: INR 1.39 (0.83-1.09); PROTHROMBIN TIME (PATIENT) 16.4 SEC (9.7-13.0)
[2018-10-07] MEDS ORDERED: ACETAMINOPHEN 1000 MG/100 ML VIAL (NON FORMULARY) IVPB ONE (10:20)
[2018-10-07] MEDS ORDERED: SODIUM CHLORIDE 1,000 ML IV STA (10:20)
[2018-10-07 11:32] LABS: ANION GAP 8 MMOL/L (8-16); BLOOD UREA NITROGEN 10 mg/dL (7-18); CALCIUM 8.5 mg/dL (8.5-10.1); CHLORIDE 103 mmol/L (98-107); CO2 25 mmol/L (21-32); CREATININE 1.3 mg/dL (0.55-1.3); GLUCOSE,RANDOM 109 mg/dL (74-106); POTASSIUM 4.5 mmol/L (3.5-5.1); SODIUM 136 mmol/L (136-145); TOT PROT 6.9 g/dl (6.4-8.2)
[2018-10-07 11:33] LABS: ALBUMIN 3.1 g/dl (3.4-5.0); ALK PHOS 128 U/L (45-117); BILIRUBIN,TOTAL 0.5 mg/dL (0.2-1); SGOT/AST 21 U/L (15-37); SGPT/ALT 29 U/L (13-61)
--- NOTE | 2018-10-07 19:23 | HP ---
Admitting History and Physical - Primary Care Physician PCP: Geneva Valdes - Admission History of Present Illness: 33 year old female, with a significant PMH of HTN, A-fib (compliant with Eliquis), and vertigo, who presents to the emergency department today complaining of LE cramping for 3 days, and chills/sweats, increased heart rate, and chest pain for 2 days. Patient notes that she began experiencing bilateral LE cramping 3 days ago, starting at her thighs and radiating down her calves. Patient notes that the cramping became so severe that is began debilitating her walking. Patient reports that later that day she slept for 20+ hours, which provided her with some relief for cramping but notes she still felt exhausted. Upon waking up this morning, she states she experienced chills/sweats, increased heart rate, and chest pain. Patient notes she woke up in a pool of sweat, but denied having a fever. She notes her heart rate was increased to 120 (baseline is 90-100). Patient also reports chest pain, that she describes as pressure which she believes is related to indigestion. She rates it as a 6/10, which is exacerbated with sitting up but is alleviated while lying down. Patient also notes that she does feel dizzy and SOB, but this is her baseline secondary to her A-fib. Patient reports that she took all of her daily medications this morning. She confirms multiple sick contacts and had a fever approximately 2 weeks ago, but does note that she is up to date on her flu vaccination. - Past Medical History Cardiovascular: Yes: AFIB, HTN Endocrine: Yes: Hyperthyroidism - Smoking History Smoking history: Never smoked Have you smoked in the past 12 months: No If you are a former smoker, when did you quit?: 2016 - Alcohol/Substance Use Hx Alcohol Use: No Home Medications - Allergies Allergies/Adverse Reactions: Allergies Allergy/AdvReac Type Severity Reaction Status Date / Time No Known Allergies Allergy Verified 10/07/18 08:54 - Home Medications Home Medications: Ambulatory Orders Cholecalciferol (Vitamin D3) [Vitamin D -] 3,000 units PO DAILY 02/17/17 Apixaban [Eliquis -] 5 mg PO BID #60 tablet 02/18/17 Diltiazem Cd [Cardizem Cd -] 120 mg PO DAILY #30 tab 02/18/17 Metoprolol Succinate [Toprol XL -] 12.5 mg PO DAILY #30 tab 02/18/17 Physical Examination Vital Signs: Vital Signs Temperature 98.2 F 10/07/18 16:12 Pulse Rate 115 H 10/07/18 17:50 Respiratory Rate 22 H 10/07/18 17:50 Blood Pressure 141/97 10/07/18 17:50 O2 Sat by Pulse Oximetry (%) 99 10/07/18 17:50 Constitutional: Yes: No Distress HENT: Yes: Atraumatic Neck: Yes: Supple Cardiovascular: Yes: Regular Rate and Rhythm, Tachycardia Respiratory: Yes: CTA Bilaterally Gastrointestinal: Yes: Normal Bowel Sounds Extremities: Yes: WNL Edema: No Peripheral Pulses WNL: Yes Neurological: Yes: Alert, Oriented Labs: CBC, BMP 10/07/18 09:20 10/07/18 09:20 Imaging - Results Chest X-ray: Report Reviewed Problem List - Problems (1) HTN (hypertension) Assessment/Plan: on meds will get cardiology involve Code(s): I10 - ESSENTIAL (PRIMARY) HYPERTENSION Qualifiers: Hypertension type: essential hypertension Qualified Code(s): I10 - Essential (primary) hypertension (2) Tachycardia Code(s): R00.0 - TACHYCARDIA, UNSPECIFIED (3) Hyperthyroidism Assessment/Plan: check tsh endocrine consult Code(s): E05.90 - THYROTOXICOSIS, UNSP WITHOUT THYROTOXIC CRISIS OR STORM Assessment/Plan Laboratory Tests 10/07/18 10/07/18 10/07/18 09:20 09:20 09:20 WBC 10.5 H RBC 6.01 H Hgb 15.1 Hct 47.9 H MCV 79.8 L MCH 25.1 L MCHC 31.4 L RDW 14.3 Plt Count 271 MPV 7.6 Absolute Neuts (auto) 7.7 Neutrophils % 73.9 D Lymphocytes % 14.9 D Monocytes % 6.2 Eosinophils % 4.7 H D Basophils % 0.3 Nucleated RBC % 0 PT with INR 16.40 H INR 1.39 H Sodium 136 Potassium 4.5 Chloride 103 Carbon Dioxide 25 Anion Gap 8 BUN 10 Creatinine 1.3 Creat Clearance w eGFR 46.61 Random Glucose 109 H Calcium 8.5 Total Bilirubin 0.5 AST 21 ALT 29 Alkaline Phosphatase 128 H Creatine Kinase 265 H Creatine Kinase Index 0.3 CK-MB (CK-2) 1.0 Troponin I < 0.02 B-Natriuretic Peptide Cancelled Total Protein 6.9 Albumin 3.1 L TSH 0.17 L Serum , Qual Influenza A (Rapid) Influenza B (Rapid) 10/07/18 10/07/18 09:45 10:00 WBC RBC Hgb Hct MCV MCH MCHC RDW Plt Count MPV Absolute Neuts (auto) Neutrophils % Lymphocytes % Monocytes % Eosinophils % Basophils % Nucleated RBC % PT with INR INR Sodium Potassium Chloride Carbon Dioxide Anion Gap BUN Creatinine Creat Clearance w eGFR Random Glucose Calcium Total Bilirubin AST ALT Alkaline Phosphatase Creatine Kinase Creatine Kinase Index CK-MB (CK-2) Troponin I B-Natriuretic Peptide Total Protein Albumin TSH Serum , Qual Negative Influenza A (Rapid) Negative Influenza B (Rapid) Negative Active Medications Generic Name Dose Route Start Last Admin Trade Name Freq PRN Reason Stop Dose Admin Apixaban 5 mg 10/07/18 22:00 10/08/18 09:46 Eliquis - PO [address] Administration Diltiazem HCl 120 mg 10/08/18 10:00 10/08/18 09:46 Cardizem Cd - PO [address] Administration Metoprolol Succinate 25 mg 10/09/18 10:00 Toprol Xl - PO DAILY COURT
[2018-10-07] MEDS: APIXABAN 5 MG TABLET PO SCH (22:15)
[2018-10-07] MEDS ORDERED: APIXABAN 5 MG TABLET PO ONE (22:16)
[2018-10-08] MEDS ORDERED: PT OWN MED DRAWER 7, Y5N ONE ×3 (09:41→21:39)
[2018-10-08] MEDS: APIXABAN 5 MG TABLET PO SCH ×2 (09:46→21:43)
[2018-10-08] MEDS ORDERED: metoPROLOL SUCCINATE 25 MG TAB.SR.24H (FP) PO SCH ×2 (10:00→11:56)
--- NOTE | 2018-10-08 11:37 | CON.CARD ---
Consult Consult Specialty:: Cardiology Referred by:: Geneva Valdes MD Reason for Consultation:: Rapid afib - History of Present Illness Chief Complaint: Daytime somnolence, chest pain, palpitations History of Present Illness: Patient is a 31 year old female with a significant past medical history of hypertension, paroxysmal atrial fibrillation on Eliquis, Sony-Danlos syndrome , polycystitic ovarian syndrome, thyroid nodule and sleep apnea on cpap, who presents to the ED with daytime somnolence, tachycardia, chest discomfort, light -headedness, palpitations, crampy calf discomfort, reports medication compliance , denies orthopnea, PND, LE edema, noted to have abnormal TSH. Last saw Dr. Santoyo 07/20/2018. - History Source History Provided By: Patient Limitations to Obtaining History: No Limitations - Past Medical History Cardio/Vascular: Yes: AFIB, HTN - Alcohol/Substance Use Hx Alcohol Use: No - Smoking History Smoking history: Never smoked Have you smoked in the past 12 months: No If you are a former smoker, when did you quit?: 2016 Home Medications - Allergies Allergies/Adverse Reactions: Allergies Allergy/AdvReac Type Severity Reaction Status Date / Time No Known Allergies Allergy Verified 10/07/18 08:54 - Home Medications Home Medications: Ambulatory Orders Cholecalciferol (Vitamin D3) [Vitamin D -] 3,000 units PO DAILY 02/17/17 Apixaban [Eliquis -] 5 mg PO BID #60 tablet 02/18/17 Diltiazem Cd [Cardizem Cd -] 120 mg PO DAILY #30 tab 02/18/17 Metoprolol Succinate [Toprol XL -] 12.5 mg PO DAILY #30 tab 02/18/17 Review of Systems - Review of Systems Constitutional: reports: Weakness Cardiovascular: reports: Chest Pain, Shortness of Breath Neurological: reports: Dizziness Vital Signs: Vital Signs Temperature 98.4 F 10/08/18 06:40 Pulse Rate 110 H 10/08/18 09:36 Respiratory Rate 18 10/08/18 09:36 Blood Pressure 106/58 L 10/08/18 09:36 O2 Sat by Pulse Oximetry (%) 98 10/08/18 06:40 Constitutional: Yes: No Distress, Calm Neck: Yes: Supple Respiratory: Yes: Regular, Diminished Gastrointestinal: Yes: Normal Bowel Sounds, Soft, Abdomen, Obese Cardiovascular: Yes: Regular Rate and Rhythm, Tachycardia JVD: No Carotid Bruit: No Heart Sounds: Yes: S1, S2 Murmur: Yes: Systolic Murmur, Grade 1 Edema: Yes Edema: LLE: Trace, RLE: Trace - Other Data Labs, Other Data: CBC, BMP 10/07/18 09:20 10/07/18 09:20 INR, PTT INR 1.39 (0.83-1.09) H 10/07/18 09:20 Troponin, BNP 10/07/18 09:20 Troponin I < 0.02 B-Natriuretic Peptide Cancelled Troponin, BNP 10/07/18 09:20 Troponin I < 0.02 B-Natriuretic Peptide Cancelled ST @ 117 LAE Ejection Fraction %: LVEF > or = 40 % Imaging - Results Chest X-ray: Report Reviewed (NAD) Problem List - Problems (1) Palpitations Code(s): R00.2 - PALPITATIONS (2) Paroxysmal atrial fibrillation Code(s): I48.0 - PAROXYSMAL ATRIAL FIBRILLATION (3) Chronic anticoagulation Code(s): Z79.01 - SHELTER (CURRENT) USE OF ANTICOAGULANTS (4) Chest pain Code(s): R07.9 - CHEST PAIN, UNSPECIFIED Qualifiers: Chest pain type: other chest pain Qualified Code(s): R07.89 - Other chest pain; R07.8 - Other chest pain (5) ROSA ISELA on CPAP Code(s): G47.33 - OBSTRUCTIVE SLEEP APNEA (ADULT) (PEDIATRIC); Z99.89 - DEPENDENCE ON OTHER ENABLING MACHINES AND DEVICES (6) HTN (hypertension) Code(s): I10 - ESSENTIAL (PRIMARY) HYPERTENSION Qualifiers: Hypertension type: essential hypertension Qualified Code(s): I10 - Essential (primary) hypertension (7) Weakness Code(s): R53.1 - WEAKNESS (8) Morbid (severe) obesity due to excess calories Code(s): E66.01 - MORBID (SEVERE) OBESITY DUE TO EXCESS CALORIES Assessment/Plan 07/22/2018 Normal LV and RV size and fxn, abnl LV compliance, normal atrial sizes, mild TR, tr AR, MR, CO 1. Chest pain, palpitations referable to 2. Paroxysmal atrial fibrillation->NSR [id number] on Eliquis 3. Hypertension 4. Morbid obesity with OSAS on cpap 5. Abnormal TSH 6. Ehler's Danlos syndrome 7. Polycystic ovarian syndrome P:1. Check full TFT panel 2. Increase Toprol XL 25 qd, continue Cardizem CD 120 qd, Eliquis 5 bid 3. Continue cpap 4. Review outpatient records 5. F/u with Dr. Ac Santoyo of [facility] upon d/c 6. Thank you for consultative opportunity
[2018-10-08] MEDS ORDERED: metoPROLOL SUCCINATE 25 MG TAB.SR.24H (FP) PO ONE (11:56)
--- NOTE | 2018-10-08 12:47 | EKG ---
Test Reason : Blood Pressure : / mmHG Vent. Rate : 117 BPM Atrial Rate : 117 BPM P-R Int : 156 ms QRS Dur : 090 ms QT Int : 320 ms P-R-T Axes : 066 093 020 degrees QTc Int : 446 ms SINUS TACHYCARDIA POSSIBLE LEFT ATRIAL ENLARGEMENT RIGHTWARD AXIS BORDERLINE ECG WHEN COMPARED WITH ECG OF 17-FEB-2017 09:07, NO SIGNIFICANT CHANGE WAS FOUND Confirmed by JOSSUE YEBOAH, JONES ([id number]) on 10/08/2018 12:46:53 PM Referred By: Confirmed By:JONES MARCUM MD
--- NOTE | 2018-10-08 14:01 | CONSULT ---
Consult Consult Specialty:: Endocrinology Referred by:: Dr Valdes Reason for Consultation:: Abnormal TFT - History of Present Illness Chief Complaint: Weakness History of Present Illness: This is a 33 year old female, with a significant PMH of HTN, A-fib (compliant with Eliquis), and vertigo, who presents to the emergency department today complaining of tiredness for 2 days, LE cramping for 3 days, and chills/sweats, increased heart rate, and chest pain for 2 days. Patient reports that later that day she slept for 20+ hours, which provided her with some relief for cramping but notes she still felt exhausted. Pt gives h/o thyroid nodules with multiple biopsies which were benign. Pt was diagnosed as hyperthyroid by her Streaming Media Specialist but was told by her Worship Director that her thyroid levels are normal. - History Source History Provided By: Patient, Medical Record - Past Medical History Cardio/Vascular: Yes: AFIB, HTN ...: No Endocrine: Yes: Other (Thyroid nodules) - Alcohol/Substance Use Hx Alcohol Use: No - Smoking History Smoking history: Never smoked Have you smoked in the past 12 months: No If you are a former smoker, when did you quit?: 2016 Home Medications - Allergies Allergies/Adverse Reactions: Allergies Allergy/AdvReac Type Severity Reaction Status Date / Time No Known Allergies Allergy Verified 10/07/18 08:54 - Home Medications Home Medications: Ambulatory Orders Cholecalciferol (Vitamin D3) [Vitamin D -] 3,000 units PO DAILY 02/17/17 Apixaban [Eliquis -] 5 mg PO BID #60 tablet 02/18/17 Diltiazem Cd [Cardizem Cd -] 120 mg PO DAILY #30 tab 02/18/17 Metoprolol Succinate [Toprol XL -] 12.5 mg PO DAILY #30 tab 02/18/17 Review of Systems - Review of Systems Constitutional: reports: Malaise, Weakness Eyes: reports: No Symptoms HENT: reports: No Symptoms Neck: reports: No Symptoms Cardiovascular: reports: Palpitations (Internittently) Respiratory: reports: No Symptoms Gastrointestinal: reports: No Symptoms Genitourinary: reports: No Symptoms Musculoskeletal: reports: No Symptoms Endocrine: reports: No Symptoms Physical Exam Vital Signs: Vital Signs Temperature 98.4 F 10/08/18 06:40 Pulse Rate 110 H 10/08/18 09:36 Respiratory Rate 18 10/08/18 09:36 Blood Pressure 106/58 L 10/08/18 09:36 O2 Sat by Pulse Oximetry (%) 98 10/08/18 11:31 Constitutional: Yes: No Distress, Calm Eyes: Yes: Conjunctiva Clear, EOM Intact HENT: Yes: Atraumatic, Normocephalic Neck: Yes: Supple, Trachea Midline Cardiovascular: Yes: Regular Rate and Rhythm Respiratory: Yes: Regular, CTA Bilaterally Gastrointestinal: Yes: Normal Bowel Sounds, Soft Musculoskeletal: Yes: WNL Extremities: Yes: WNL Edema: No Labs: CBC, BMP 10/07/18 09:20 10/07/18 09:20 Assessment/Plan AP: Abnormal TFT with TSH of 0.17 Hyperthyroidism vs Sick euthyroid Rpt TFT, TSI, TPO Paroxysmal atrial fibrillation->NSR [id number] on Eliquis Hypertension Morbid obesity with OSAS on cpap Ehler's Danlos syndrome Polycystic ovarian syndrome
--- NOTE | 2018-10-08 15:52 | EKG ---
Test Reason : Blood Pressure : / mmHG Vent. Rate : 107 BPM Atrial Rate : 107 BPM P-R Int : 166 ms QRS Dur : 086 ms QT Int : 330 ms P-R-T Axes : 062 087 020 degrees QTc Int : 440 ms SINUS TACHYCARDIA OTHERWISE NORMAL ECG WHEN COMPARED WITH ECG OF 07-OCT-2018 08:45, NO SIGNIFICANT CHANGE WAS FOUND Confirmed by JONES MARCUM MD ([id number]) on 10/08/2018 3:52:28 PM Referred By: RENA KAPLAN Confirmed By:JONES MARCUM MD
--- NOTE | 2018-10-08 16:09 | PN ---
Progress Note, Physician History of Present Illness: feeling better - Current Medication List Current Medications: Active Medications Apixaban (Eliquis -) 5 mg PO BID [facility] Last Admin: 10/08/18 09:46 Dose: 5 mg Diltiazem HCl (Cardizem Cd -) 120 mg PO DAILY [facility] Last Admin: 10/08/18 09:46 Dose: 120 mg Metoprolol Succinate (Toprol Xl -) 25 mg PO DAILY [facility] - Objective Vital Signs: Vital Signs Temperature 98.4 F 10/08/18 06:40 Pulse Rate 110 H 10/08/18 09:36 Respiratory Rate 18 10/08/18 09:36 Blood Pressure 106/58 L 10/08/18 09:36 O2 Sat by Pulse Oximetry (%) 98 10/08/18 11:31 Constitutional: Yes: No Distress HENT: Yes: Atraumatic Neck: Yes: Supple Cardiovascular: Yes: Regular Rate and Rhythm, Tachycardia Respiratory: Yes: CTA Bilaterally Gastrointestinal: Yes: Normal Bowel Sounds Extremities: Yes: WNL Edema: No Neurological: Yes: Alert, Oriented Labs: CBC, BMP 10/07/18 09:20 10/07/18 09:20 INR, PTT INR 1.39 (0.83-1.09) H 10/07/18 09:20 Problem List - Problems (1) HTN (hypertension) Assessment/Plan: on meds will get cardiology involve Code(s): I10 - ESSENTIAL (PRIMARY) HYPERTENSION Qualifiers: Hypertension type: essential hypertension Qualified Code(s): I10 - Essential (primary) hypertension (2) Tachycardia Assessment/Plan: better today on meds Code(s): R00.0 - TACHYCARDIA, UNSPECIFIED (3) Hyperthyroidism Assessment/Plan: endocrine consult noted Code(s): E05.90 - THYROTOXICOSIS, UNSP WITHOUT THYROTOXIC CRISIS OR STORM
[2018-10-09] MEDS: APIXABAN 5 MG TABLET PO SCH ×2 (09:05→21:04)
[2018-10-09] MEDS ORDERED: metoPROLOL SUCCINATE 25 MG TAB.SR.24H (FP) PO SCH (10:00)
--- NOTE | 2018-10-09 11:13 | PN ---
Progress Note, Physician History of Present Illness: Patient reports improvement in tachycardia, chest discomfort, light-headedness, palpitations after uptitration of Toprol XL, noted to have abnormal TSH ( hyerthyroid vs sick euthyroid), thyroid labs pending. Last saw Dr. Santoyo . - Current Medication List Current Medications: Active Medications Apixaban (Eliquis -) 5 mg PO BID [facility] Last Admin: 10/09/18 09:05 Dose: 5 mg Diltiazem HCl (Cardizem Cd -) 120 mg PO DAILY [facility] Last Admin: 10/09/18 09:05 Dose: 120 mg Metoprolol Succinate (Toprol Xl -) 25 mg PO DAILY [facility] Last Admin: 10/09/18 09:05 Dose: 25 mg - Objective Vital Signs: Vital Signs Temperature 98.0 F 10/09/18 09:58 Pulse Rate 110 H 10/09/18 09:58 Respiratory Rate 18 10/09/18 09:58 Blood Pressure 108/63 10/09/18 09:58 O2 Sat by Pulse Oximetry (%) 95 10/09/18 09:58 Constitutional: Yes: No Distress, Calm Neck: Yes: Supple Cardiovascular: Yes: Tachycardia Respiratory: Yes: Regular, CTA Bilaterally Gastrointestinal: Yes: Normal Bowel Sounds, Soft, Abdomen, Obese Edema: No Labs: CBC, BMP 10/07/18 09:20 10/07/18 09:20 INR, PTT INR 1.39 (0.83-1.09) H 10/07/18 09:20 - ....Imaging EKG: Report Reviewed (Tele: Sinus tachycardia w/o PAF) Problem List - Problems (1) Palpitations Code(s): R00.2 - PALPITATIONS (2) Paroxysmal atrial fibrillation Code(s): I48.0 - PAROXYSMAL ATRIAL FIBRILLATION (3) Chronic anticoagulation Code(s): Z79.01 - [employer] (CURRENT) USE OF ANTICOAGULANTS (4) Chest pain Code(s): R07.9 - CHEST PAIN, UNSPECIFIED Qualifiers: Chest pain type: other chest pain Qualified Code(s): R07.89 - Other chest pain; R07.8 - Other chest pain (5) ROSA ISELA on CPAP Code(s): G47.33 - OBSTRUCTIVE SLEEP APNEA (ADULT) (PEDIATRIC); Z99.89 - DEPENDENCE ON OTHER ENABLING MACHINES AND DEVICES (6) HTN (hypertension) Code(s): I10 - ESSENTIAL (PRIMARY) HYPERTENSION Qualifiers: Hypertension type: essential hypertension Qualified Code(s): I10 - Essential (primary) hypertension (7) Weakness Code(s): R53.1 - WEAKNESS (8) Morbid (severe) obesity due to excess calories Code(s): E66.01 - MORBID (SEVERE) OBESITY DUE TO EXCESS CALORIES Assessment/Plan 07/22/2018 Normal LV and RV size and fxn, abnl LV compliance, normal atrial sizes, mild TR, tr AR, MR, CO 1. Chest pain, palpitations referable to 2. Paroxysmal atrial fibrillation->NSR [id number] on Eliquis 3. Hypertension 4. Morbid obesity with OSAS on cpap 5. Abnormal TSH, Hyperthyroidism vs Sick euthyroid 6. Ehler's Danlos syndrome 7. Polycystic ovarian syndrome P:1. Check full TFT panel, TSI, TPO 2. Increase Toprol XL 50 qd, continue Cardizem CD 120 qd, Eliquis 5 bid 3. Continue cpap 4. Reviewed outpatient records 5. F/u [facility] d/c
--- NOTE | 2018-10-09 17:21 | PN ---
Progress Note, Physician History of Present Illness: feeling better - Current Medication List Current Medications: Active Medications Apixaban (Eliquis -) 5 mg PO BID [facility] Last Admin: 10/09/18 09:05 Dose: 5 mg Diltiazem HCl (Cardizem Cd -) 120 mg PO DAILY [facility] Last Admin: 10/09/18 09:05 Dose: 120 mg Metoprolol Succinate (Toprol Xl -) 50 mg PO DAILY [facility] - Objective Vital Signs: Vital Signs Temperature 97.9 F 10/09/18 14:00 Pulse Rate 107 H 10/09/18 14:00 Respiratory Rate 18 10/09/18 14:00 Blood Pressure 130/74 10/09/18 14:00 O2 Sat by Pulse Oximetry (%) 95 10/09/18 09:58 Constitutional: Yes: No Distress HENT: Yes: Atraumatic Neck: Yes: Supple Cardiovascular: Yes: Regular Rate and Rhythm, Tachycardia Respiratory: Yes: CTA Bilaterally Extremities: Yes: WNL Edema: No Peripheral Pulses WNL: Yes Neurological: Yes: Alert, Oriented Labs: CBC, BMP 10/07/18 09:20 10/07/18 09:20 INR, PTT INR 1.39 (0.83-1.09) H 10/07/18 09:20 Problem List - Problems (1) HTN (hypertension) Assessment/Plan: on toprol 50 mg po daily per cardiology Code(s): I10 - ESSENTIAL (PRIMARY) HYPERTENSION Qualifiers: Hypertension type: essential hypertension Qualified Code(s): I10 - Essential (primary) hypertension (2) Tachycardia Assessment/Plan: better today on meds Code(s): R00.0 - TACHYCARDIA, UNSPECIFIED (3) Hyperthyroidism Assessment/Plan: labs pending Code(s): E05.90 - THYROTOXICOSIS, UNSP WITHOUT THYROTOXIC CRISIS OR STORM
[2018-10-10 07:57] LABS: BASO % 0.6 % (0-2.0); EOS % 8.4 % (0-4.5); HEMATOCRIT 44.5 % (32.4-45.2); HEMOGLOBIN 13.8 GM/dL (10.7-15.3); LYMPH % 23.1 % (8-40); MCH 25.1 pg (25.7-33.7); MCHC 31.1 g/dl (32.0-36.0); MEAN CELL VOLUME 80.8 fl (80-96); MEAN PLT VOLUME 7.8 fl (7.5-11.1); NEUT % 52.9 % (42.8-82.8); PLATELET COUNT 270 K/MM3 (134-434); RBC 5.51 M/mm3 (3.60-5.2); RDW 14.6 % (11.6-15.6); WHITE BLOOD COUNT 8.9 K/mm3 (4.0-10.0)
[2018-10-10] MEDS: APIXABAN 5 MG TABLET PO SCH (09:06)
[2018-10-10 09:23] LABS: ALBUMIN 2.6 g/dl (3.4-5.0); ALK PHOS 90 U/L (45-117); ANION GAP 8 MMOL/L (8-16); BILIRUBIN,TOTAL 0.4 mg/dL (0.2-1); BLOOD UREA NITROGEN 16 mg/dL (7-18); CALCIUM 8.4 mg/dL (8.5-10.1); CHLORIDE 99 mmol/L (98-107); CO2 28 mmol/L (21-32); CREATININE 1.3 mg/dL (0.55-1.3); GLUCOSE,RANDOM 113 mg/dL (74-106); POTASSIUM 4.4 mmol/L (3.5-5.1); SGOT/AST 18 U/L (15-37); SGPT/ALT 27 U/L (13-61); SODIUM 136 mmol/L (136-145); TOT PROT 6.1 g/dl (6.4-8.2)
--- NOTE | 2018-10-10 09:51 | PN ---
Progress Note, Physician History of Present Illness: Patient reports improvement in tachycardia, chest discomfort, light-headedness, palpitations after uptitration of Toprol XL, noted to have abnormal TSH referable to sick euthyroid given normal f/u thyroid labs. Last saw Dr. Santoyo 07/20/2018. - Current Medication List Current Medications: Active Medications Apixaban (Eliquis -) 5 mg PO BID [facility] Last Admin: 10/10/18 09:06 Dose: 5 mg Diltiazem HCl (Cardizem Cd -) 120 mg PO DAILY [facility] Last Admin: 10/10/18 09:06 Dose: 120 mg Metoprolol Succinate (Toprol Xl -) 50 mg PO DAILY [facility] Last Admin: 10/10/18 09:06 Dose: 50 mg - Objective Vital Signs: Vital Signs Temperature 97.9 F 10/10/18 05:56 Pulse Rate 101 H 10/10/18 05:56 Respiratory Rate 16 10/10/18 05:56 Blood Pressure 128/66 10/10/18 05:56 O2 Sat by Pulse Oximetry (%) 96 10/10/18 03:00 Constitutional: Yes: No Distress, Calm Neck: Yes: Supple Cardiovascular: Yes: Regular Rate and Rhythm Respiratory: Yes: Regular, Diminished Gastrointestinal: Yes: Normal Bowel Sounds, Soft, Abdomen, Obese Edema: No Labs: CBC, BMP 10/10/18 06:30 10/10/18 06:30 INR, PTT INR 1.39 (0.83-1.09) H 10/07/18 09:20 - ....Imaging EKG: Report Reviewed (Tele: ST 101) Problem List - Problems (1) Palpitations Code(s): R00.2 - PALPITATIONS (2) Paroxysmal atrial fibrillation Code(s): I48.0 - PAROXYSMAL ATRIAL FIBRILLATION (3) Chronic anticoagulation Code(s): Z79.01 - [facility] (CURRENT) USE OF ANTICOAGULANTS (4) Chest pain Code(s): R07.9 - CHEST PAIN, UNSPECIFIED Qualifiers: Chest pain type: other chest pain Qualified Code(s): R07.89 - Other chest pain; R07.8 - Other chest pain (5) ROSA ISELA on CPAP Code(s): G47.33 - OBSTRUCTIVE SLEEP APNEA (ADULT) (PEDIATRIC); Z99.89 - DEPENDENCE ON OTHER ENABLING MACHINES AND DEVICES (6) HTN (hypertension) Code(s): I10 - ESSENTIAL (PRIMARY) HYPERTENSION Qualifiers: Hypertension type: essential hypertension Qualified Code(s): I10 - Essential (primary) hypertension (7) Weakness Code(s): R53.1 - WEAKNESS (8) Morbid (severe) obesity due to excess calories Code(s): E66.01 - MORBID (SEVERE) OBESITY DUE TO EXCESS CALORIES Assessment/Plan 07/22/2018 Normal LV and RV size and fxn, abnl LV compliance, normal atrial sizes, mild TR, tr AR, MR, FL 1. Chest pain, palpitations referable to 2. Paroxysmal atrial fibrillation->NSR [id number] on Eliquis 3. Hypertension 4. Morbid obesity with OSAS on cpap 5. Abnormal TSH, referable to Sick euthyroid 6. Ehler's Danlos syndrome 7. Polycystic ovarian syndrome P:1. Reviewed full TFT panel, TSI, TPO 2. Increased Toprol XL 50 qd, continue Cardizem CD 120 qd, Eliquis 5 bid 3. Continue cpap 4. Reviewed outpatient records 5. January d/c home with f/u with Dr. Ac Santoyo of [facility]
[2018-10-10 10:33] VITALS: BP 100/69; PULSE 108; TEMP 97.8
--- NOTE | 2018-10-10 11:34 | PN ---
Progress Note (short form) - Note Progress Note: Feels good No complaints Vital Signs Period Temp Pulse Resp BP Sys/Matthews Pulse Ox Last 24 Hr 97.8 F-98.2 F 94-108 16-18 99-130/53-78 96-97 PE: AOx3 Neck: Supple, No JVD HEENT: EOMI Lungs: CTA CVS: S1S2 Abd: Benign EXt: No edema Neuro: No focal deficit] CMP Sodium 136 mmol/L (136-145) 10/10/18 06:30 Potassium 4.4 mmol/L (3.5-5.1) 10/10/18 06:30 Chloride 99 mmol/L (98-107) 10/10/18 06:30 Carbon Dioxide 28 mmol/L (21-32) 10/10/18 06:30 Anion Gap 8 MMOL/L (8-16) 10/10/18 06:30 BUN 16 mg/dL (7-18) 10/10/18 06:30 Creatinine 1.3 mg/dL (0.55-1.3) 10/10/18 06:30 Creat Clearance w eGFR 46.61 (>60) 10/10/18 06:30 Random Glucose 113 mg/dL (74-106) H 10/10/18 06:30 Calcium 8.4 mg/dL (8.5-10.1) L 10/10/18 06:30 Total Bilirubin 0.4 mg/dL (0.2-1) 10/10/18 06:30 AST 18 U/L (15-37) 10/10/18 06:30 ALT 27 U/L (13-61) 10/10/18 06:30 Alkaline Phosphatase 90 U/L (45-117) 10/10/18 06:30 Creatine Kinase 209 IU/L (26-192) H 10/10/18 06:30 Creatine Kinase Index 0.9 % (0.0-5.0) 10/10/18 06:30 CK-MB (CK-2) 1.9 ng/mL (0.5-3.6) 10/10/18 06:30 Troponin I < 0.02 ng/ml (0.00-0.05) 10/07/18 09:20 B-Natriuretic Peptide Cancelled 10/07/18 09:20 Total Protein 6.1 g/dl (6.4-8.2) L 10/10/18 06:30 Albumin 2.6 g/dl (3.4-5.0) L 10/10/18 06:30 TSH 0.98 uIU/ml (0.358-3.74) 10/09/18 06:00 Free T4 1.05 ng/dl (0.76-1.46) 10/09/18 06:00 Free T3 2.6 pg/ml (2.0-4.4) 10/09/18 06:00 Total T3 92.00 ng/dl (71-180) 10/09/18 06:00 Serum , Qual Negative 10/07/18 09:45 Current Medications Generic Name Dose Route Start Last Admin Trade Name Ilana PRN Reason Stop Dose Admin Apixaban 5 mg 10/07/18 22:00 10/10/18 09:06 Eliquis - PO [address] Administration Diltiazem HCl 120 mg 10/08/18 10:00 10/10/18 09:06 Cardizem Cd - PO [address] Administration Metoprolol Succinate 50 mg 10/09/18 17:18 10/10/18 09:06 Toprol Xl - PO [address] Administration AP: Abnormal TFT with TSH of 0.17 Hyperthyroidism vs Sick euthyroid Rpt TFT WNL TSI pending Rpt TFT in 3 to 6 months Thyroid nodules/cysts: F/U in office in 6 to 8 weeks. Paroxysmal atrial fibrillation->NSR [id number] on Eliquis Hypertension Morbid obesity with OSAS on cpap Ehler's Danlos syndrome Polycystic ovarian syndrome
--- NOTE | 2018-10-10 13:01 | DS ---
Physical Examination Vital Signs: Vital Signs Temperature 97.8 F 10/10/18 10:00 Pulse Rate 108 H 10/10/18 10:00 Respiratory Rate 16 10/10/18 11:00 Blood Pressure 100/69 10/10/18 10:00 O2 Sat by Pulse Oximetry (%) 96 10/10/18 11:00 Constitutional: Yes: No Distress HENT: Yes: Atraumatic Neck: Yes: Supple Cardiovascular: Yes: Regular Rate and Rhythm Respiratory: Yes: CTA Bilaterally Gastrointestinal: Yes: Normal Bowel Sounds Extremities: Yes: WNL Edema: No Peripheral Pulses WNL: Yes Neurological: Yes: Alert, Oriented Labs: CBC, BMP 10/10/18 06:30 10/10/18 06:30 Discharge Summary Reason For Visit: TACHYCARDIA,WEAKNESS Current Active Problems Chest pain (Acute) Chronic anticoagulation (Acute) HTN (hypertension) (Acute) Hyperthyroidism (Acute) ROSA ISELA on CPAP (Acute) Palpitations (Acute) Paroxysmal atrial fibrillation (Acute) Tachycardia (Acute) Weakness (Acute) Condition: Stable - Instructions Referrals: Raul Galan [Primary Care Provider] - Nando Perdomo MD [Staff Physician] - Rosa Zuñiga MD [Staff Physician] - Geneva Valdes MD [Staff Physician] - Disposition: HOME - Home Medications Comprehensive Discharge Medication List: Ambulatory Orders Cholecalciferol (Vitamin D3) [Vitamin D -] 3,000 units PO DAILY 02/17/17 Apixaban [Eliquis -] 5 mg PO BID #60 tablet 02/18/17 Diltiazem Cd [Cardizem Cd -] 120 mg PO DAILY #30 tab 02/18/17 Metoprolol Succinate [Toprol XL -] 50 mg PO DAILY #30 tab.sr.24h 10/09/18 al home
[2018-10-12 16:25] LABS: THYROID STIM IMMUNOGLOBULIN <0.10 IU/L (0.00-0.55)
== END 2018-10-10 14:28 | disposition home or self-care (01) ==
LOC: JER 08:39 → JERBED 14:09 → J4S 10-08 15:05
PROVIDERS: ADMIT Internal Medicine; ATTEND Internal Medicine
PROC: 3E033NZ Introduction of Analgesics, Hypnotics, Sedatives into Peripheral Vein, Percutaneous Approach (ICD-10-PCS; principal; 2018-10-07)
PROC: 3E0337Z Introduction of Electrolytic and Water Balance Substance into Peripheral Vein, Percutaneous Approach (ICD-10-PCS; 2018-10-07)
DX: R00.0 Tachycardia, unspecified (principal); I10 Essential (primary) hypertension; R00.2 Palpitations; I48.0 Paroxysmal atrial fibrillation; R07.89 Other chest pain; G47.33 Obstructive sleep apnea (adult) (pediatric); E05.90 Thyrotoxicosis, unspecified without thyrotoxic crisis or storm; Q79.6 Ehlers-Danlos syndromes; E28.2 Polycystic ovarian syndrome; E04.1 Nontoxic single thyroid nodule; R94.6 Abnormal results of thyroid function studies; E66.01 Morbid (severe) obesity due to excess calories; Z99.89 Dependence on other enabling machines and devices; Z68.42 Body mass index [BMI] 45.0-49.9, adult; Z79.01 Long term (current) use of anticoagulants
CPT/HCPCS: 36415; 71045-TC-FY; 80053; 82550; 82553; 84436; 84439; 84443; 84445; 84480; 84481; 84484; 84703; 85025; 85610; 86376; 87804; 93005; 93010; 96361; 96374; 99285-25; G0378; J0131; J7030

== ENCOUNTER 2019-01-08 12:28 | Emergency (ER) | payer OTHER ==
[2019-01-08 12:32] VITALS: BP 145/92; PULSE 79; TEMP 97.5; BMI 49.3
--- NOTE | 2019-01-08 12:46 | PDOC ---
History of Present Illness - General Chief Complaint: Injury Stated Complaint: LT ANKLE SPRAIN Time Seen by Provider: 01/08/19 12:31 History Source: Patient Exam Limitations: No Limitations Past History - Travel Traveled outside of the country in the last 30 days: No Close contact w/someone who was outside of country & ill: No - Past Medical History Allergies/Adverse Reactions: Allergies Allergy/AdvReac Type Severity Reaction Status Date / Time No Known Allergies Allergy Verified 01/08/19 12:30 Home Medications: Ambulatory Orders Cholecalciferol (Vitamin D3) [Vitamin D -] 3,000 units PO DAILY 02/17/17 Apixaban [Eliquis -] 5 mg PO BID #60 tablet 02/18/17 Diltiazem Cd [Cardizem Cd -] 120 mg PO DAILY #30 tab 02/18/17 Metoprolol Succinate [Toprol XL -] 50 mg PO DAILY #30 tab.sr.24h 10/09/18 Cardiac Disorders: Yes (AFIB) COPD: No HTN: Yes - Reproductive History Polycystic Ovaries: Yes - Immunization History Immunization Up to Date: No - Suicide/Smoking/Psychosocial Hx Smoking History: Never smoked Have you smoked in the past 12 months: No If you are a former smoker, when did you quit?: 2016 Hx Alcohol Use: No Drug/Substance Use Hx: No Substance Use Type: None Hx Substance Use Treatment: No Review of Systems - Review of Systems Able to Perform ROS?: Yes Comments:: 01/08/19 12:43 CONSTITUTIONAL: Absent: fever, chills, diaphoresis, generalized weakness, malaise, loss of appetite MUSCULOSKELETAL: Absent: myalgia, arthralgia, joint swelling SKIN: Present: L ankle pain Absent: rash, itching, pallor NEUROLOGIC: Absent: headache, focal weakness or paresthesias, dizziness, unsteady gait, seizure, mental status changes, bladder or bowel incontinence PSYCHIATRIC: Absent: anxiety, depression, suicidal or homicidal ideation, hallucinations. Is the patient limited Tajik proficient: No *Physical Exam - Vital Signs Last Vital Signs Temp Pulse Resp BP Pulse Ox 97.5 F L 79 17 145/92 97 01/08/19 12:30 01/08/19 12:30 01/08/19 12:30 01/08/19 12:30 01/08/19 12:30 - Physical Exam Comments: 01/08/19 12:44 GENERAL: The patient is awake, alert, and fully oriented, in no acute distress. HEAD: Normal with no signs of trauma. EYES: Pupils equal, round and reactive to light, extraocular movements intact, sclera anicteric, conjunctiva clear. EXTREMITIES: TTP of the L lateral and medial malleolus with associated swelling. Decreased ROM of the L ankle d/t pain. Normal range of motion at all other joints, no edema. NEUROLOGICAL: Normal speech, normal gait. PSYCH: Normal mood, normal affect. SKIN: Warm, Dry, normal turgor, no rashes or lesions noted. Medical Decision Making - Medical Decision Making 01/08/19 12:46 The patient is a 33-year-old female with past medical history of atrial fibrillation on blood thinners, who presents to the ER today for left ankle pain. Patient states that approximately 4 days ago she twisted her ankle helping her daughter get into an ambulette. She states that she has been walking on it however she is walking with a limp. She does not feel that anything is broken at this time. Requesting crutches to help with ambulation. Denies numbness and tingling to the affected extremity, weakness to the affected extremity and fever. A/P: Left ankle sprain On exam tender to palpation of the lateral and medial malleolus of the left ankle with associated swelling. Range of motion is decreased due to pain. Distal pulses are strong and regular, no calf pain. Patient would like to defer imaging at this time; given that the injury was 4 days ago and patient is able to weight-bear, okay with deferring imaging at this time. Patient given Aircast, Obi wrap and crutches Instructed patient that she must follow up with orthopedics. Discharge home I discussed the physical exam findings, ancillary test results and final diagnoses with the patient. I answered all of the patient's questions. The patient was satisfied with the care received and felt comfortable with the discharge plan and treatment plan. The Patient agrees to follow up with the primary care physician/specialist within 24-72 hours. Return precautions were given. *DC/Admit/Observation/Transfer Diagnosis at time of Disposition: Ankle sprain Qualifiers: Encounter type: initial encounter Involved ligament of ankle: unspecified ligament Laterality: left Qualified Code(s): S93.402A - Sprain of unspecified ligament of left ankle, initial encounter - Discharge Dispostion Disposition: HOME Condition at time of disposition: Stable Decision to Admit order: No - Referrals Referrals: Sharif Saba MD [Staff Physician] - Lc Ivory DO [Staff Physician] - Pravin Bustamante MD [Staff Physician] - - Patient Instructions Printed Discharge Instructions: DI for Ankle Sprain Additional Instructions: You sprained your ankle. Please keep your ankle elevated while at rest above the level of your heart to reduce swelling. You may take Tylenol 650 mg every 6 hours to help reduce pain and swelling. Please ice the area for 20 minute intervals at least 5 times a day to help reduce swelling. Please wear the Obi wrap and use the crutches Please follow-up with orthopedics in the next 48-72 hours. Return to the emergency department if you have worsening pain, or unable to walk , numbness and tingling of the foot, or had any changes in her symptoms. - Post Discharge Activity Forms/Work/School Notes: Back to Work
== END 2019-01-08 12:55 | disposition home or self-care (01) ==
LOC: JERFT 12:28
DX: S93.402A Sprain of unspecified ligament of left ankle, initial encounter (principal); X50.1XXA Overexertion from prolonged static or awkward postures, initial encounter; Y93.89 Activity, other specified; Y92.89 Other specified places as the place of occurrence of the external cause; Y99.8 Other external cause status; I10 Essential (primary) hypertension; I48.91 Unspecified atrial fibrillation; Z79.01 Long term (current) use of anticoagulants
CPT/HCPCS: 99281-25

== ENCOUNTER 2019-08-24 14:55 | Observation (INO) | payer OTHER ==
[2019-08-24 15:07] VITALS: BMI 51.2
--- NOTE | 2019-08-24 15:43 | PDOC ---
History of Present Illness <Jatin Bosch - Last Filed: 08/24/19 18:55> <Flynn Jacob - Last Filed: 08/24/19 23:44> - General Chief Complaint: Syncope/Near Syncope Stated Complaint: Syncope/Near Syncope Time Seen by Provider: 08/24/19 15:21 - History of Present Illness Initial Comments: Ms. Martel is a 34 y/o female with PMH significant for a-fib (on eliquis, metoprolol, diltiazem), HTN, pre-DM, hx of syncope as a child, presenting today with syncope earlier this afternoon. She reports that she was in the shower when she began feeling dizzy and confused. Reports that she stepped out of the shower, and next thing she noticed she was lying on the kitchen floor. Reports that she forgot to take her daily meds this morning. At present, patient reports confusion, difficulty finding words, and difficulty with understanding and following conversations. Denies heart palpitations prior to fall. Denies chest pain/shortness of breath. Denies abdominal pain/nausea/vomiting/diarrhea. Denies tongue biting or urinary incontinence. Denies hx of seizures. Syncopal episode was unwitnessed. (Flynn Jacob) Past History <Jatin Bosch - Last Filed: 08/24/19 18:55> - Past Medical History Cardiac Disorders: Yes (AFIB) COPD: No HTN: Yes Other medical history: on cpap - Reproductive History Polycystic Ovaries: Yes - Immunization History Immunization Up to Date: No - Psycho Social/Smoking Cessation Hx Smoking History: Unknown if ever smoked Have you smoked in the past 12 months: No If you are a former smoker, when did you quit?: 2016 Hx Alcohol Use: No Drug/Substance Use Hx: No Substance Use Type: None Hx Substance Use Treatment: No <Flnyn Jacob - Last Filed: 08/24/19 23:44> - Past Medical History Allergies/Adverse Reactions: Allergies Allergy/AdvReac Type Severity Reaction Status Date / Time No Known Allergies Allergy Verified 08/24/19 15:00 Home Medications: Ambulatory Orders Cholecalciferol (Vitamin D3) [Vitamin D -] 3,000 units PO DAILY 02/17/17 Apixaban [Eliquis -] 5 mg PO BID #60 tablet 05/23/17 Diltiazem Cd [Cardizem Cd -] 120 mg PO DAILY #30 tab 02/18/17 Metoprolol Succinate [Toprol XL -] 50 mg PO DAILY #30 tab.sr.24h 10/09/18 Review of Systems <BoschJatin - Last Filed: 08/24/19 18:55> <Flynn Jacob - Last Filed: 08/24/19 23:44> - Review of Systems Comments:: GENERAL/CONSTITUTIONAL: No fever or chills. No weakness._ HEAD, EYES, EARS, NOSE AND THROAT: No change in vision. No change in hearing. No sore throat._ CARDIOVASCULAR: No chest pain or shortness of breath. No heart palpitations. RESPIRATORY: Denies cough, hemoptysis_ GASTROINTESTINAL: No nausea, vomiting, diarrhea or constipation._ GENITOURINARY: No dysuria, frequency, or change in urination._ MUSCULOSKELETAL: No joint or muscle swelling or pain. No neck or back pain._ SKIN: No rash_ NEUROLOGIC: Reports LOC. Reports lightheadedness. No headache, vertigo, or change in strength/sensation._ ENDOCRINE: No increased thirst. No abnormal weight change_ HEMATOLOGIC/LYMPHATIC: No anemia, easy bleeding. ALLERGIC/IMMUNOLOGIC: No hives or skin allergy. (Flynn Jacob) *Physical Exam <Jatin Bosch - Last Filed: 08/24/19 18:55> <Flynn Jacob - Last Filed: 08/24/19 23:44> - Vital Signs Last Vital Signs Temp Pulse Resp BP Pulse Ox 98.2 F 89 16 138/78 99 08/24/19 15:01 08/24/19 15:01 08/24/19 15:01 08/24/19 15:01 08/24/19 15:01 - Physical Exam Comments: GENERAL: Awake, alert, and oriented to person/place/time, in no acute distress_ HEAD: No signs of trauma, normocephalic, atraumatic _ EYES: PERRLA, EOMI, sclera anicteric, conjunctiva clear_ ENT: Hearing grossly normal, nares patent, oropharynx clear without exudates. No uvular deviation. Moist mucosa_ NECK: Normal ROM, supple, no lymphadenopathy, JVD, or masses. No c-spine TTP. LUNGS: No distress, speaks in full sentences, clear to auscultation bilaterally _ HEART: Regular rate and rhythm, normal S1 and S2, no murmurs appreciated, peripheral pulses normal and equal bilaterally._ ABDOMEN: Soft, nontender, normoactive bowel sounds. No guarding, no rebound. No masses_ EXTREMITIES: Normal inspection, Normal range of motion, no edema. No clubbing or cyanosis_ NEUROLOGICAL: CN II-XII tested and intact. Expressive aphasia and word finding difficulty. Sensation intact to sharp/dull differentiation in all extremities. Motor: Normal tone and bulk. No abnormal movements appreciated. No pronator drift. Strength tested and 5/5 in bilateral wrist flexion/extension, elbow flexion/extension, shoulder abduction, straight leg raise, knee flexion/ extension, ankle dorsiflexion/plantarflexion. Unsteady when standing. Coordination: Finger to nose and heel to locke testing intact bilaterally. SKIN: Warm, Dry, normal turgor, no rashes or lesions noted. (Flynn Jacob) ED Treatment Course - LABORATORY CBC & Chemistry Diagram: 08/24/19 16:15 08/24/19 16:15 <Jatin Bosch - Last Filed: 08/24/19 18:55> - LABORATORY CBC & Chemistry Diagram: 08/24/19 16:15 08/24/19 16:15 <Flynn Jacob - Last Filed: 08/24/19 23:44> - ADDITIONAL ORDERS Additional order review: Laboratory Results 08/24/19 08/24/19 08/24/19 16:15 16:15 16:15 PT with INR 13.10 H INR 1.11 H PTT (Actin FS) 38.1 H Sodium 138 Potassium 4.2 Chloride 105 Carbon Dioxide 30 Anion Gap 3 L BUN 12.5 Creatinine 1.2 Est GFR (CKD-EPI)AfAm 67.33 Est GFR (CKD-EPI)NonAf 58.09 Random Glucose 92 Calcium 8.9 Total Bilirubin 0.3 AST 24 ALT 53 Alkaline Phosphatase 149 H Creatine Kinase Creatine Kinase Index CK-MB (CK-2) Troponin I Total Protein 7.5 Albumin 3.8 TSH 0.23 L Urine Color Urine Appearance Urine pH Ur Specific [place] Urine Protein Urine Glucose (UA) Urine Ketones Urine Blood Urine Nitrite Urine Bilirubin Urine Urobilinogen Ur Leukocyte Esterase Urine WBC (Auto) Urine RBC (Auto) Urine Casts (Auto) U Pathogenic Cast Auto U Epithel Cells (Auto) Urine Bacteria (Auto) Urine Yeast (Auto) Urine HCG, Qual 08/24/19 08/24/19 08/24/19 16:15 16:10 16:10 PT with INR INR PTT (Actin FS) Sodium Potassium Chloride Carbon Dioxide Anion Gap BUN Creatinine Est GFR (CKD-EPI)AfAm Est GFR (CKD-EPI)NonAf Random Glucose Calcium Total Bilirubin AST ALT Alkaline Phosphatase Creatine Kinase 169 Creatine Kinase Index No Result Required. CK-MB (CK-2) < 1.0 Troponin I < 0.02 Total Protein Albumin TSH Urine Color Yellow Urine Appearance Cloudy Urine pH 6.0 Ur Specific [place] 1.015 Urine Protein Negative Urine Glucose (UA) Negative Urine Ketones Negative Urine Blood 1+ H Urine Nitrite Negative Urine Bilirubin Negative Urine Urobilinogen 1.0 Ur Leukocyte Esterase Negative Urine WBC (Auto) 2 Urine RBC (Auto) 5-10 Urine Casts (Auto) 26 U Pathogenic Cast Auto 3-5 U Epithel Cells (Auto) 18.3 Urine Bacteria (Auto) 385.4 Urine Yeast (Auto) None seen Urine HCG, Qual Negative 08/24/19 16:15 RBC 5.44 H MCV 80.4 MCHC 32.1 RDW 14.6 MPV 7.9 Neutrophils % 66.5 D Lymphocytes % 24.6 Monocytes % 7.2 Eosinophils % 1.2 D Basophils % 0.5 - RADIOLOGY Radiology Studies Ordered: Category Date Time Status CHEST PA & LAT [RAD] Stat Radiology 08/24/19 16:01 Completed Medical Decision Making <Jatin Bosch - Last Filed: 08/24/19 18:55> <Flynn Jacob - Last Filed: 08/24/19 23:44> - Medical Decision Making 34F hx of a-fib and syncopal episodes in childhood, presenting with loss of consciousness. -cbc, cmp, coags, TSH -ekg, cxr, trop -ua, ucx, upreg -ct head 08/24/19 15:30 EKG shows NSR with sinus arrhythmia, 72 bpm, no axis deviation, no ST elevation/ depression, QTc 427. 08/24/19 16:30 Labs and UA reviewed. Laboratory Tests 08/24/19 08/24/19 08/24/19 16:10 16:10 16:15 WBC RBC Hgb Hct MCV MCH MCHC RDW Plt Count MPV Absolute Neuts (auto) Neutrophils % Lymphocytes % Monocytes % Eosinophils % Basophils % Nucleated RBC % PT with INR INR PTT (Actin FS) Sodium Potassium Chloride Carbon Dioxide Anion Gap BUN Creatinine Est GFR (CKD-EPI)AfAm Est GFR (CKD-EPI)NonAf Random Glucose Calcium Total Bilirubin AST ALT Alkaline Phosphatase Creatine Kinase 169 Creatine Kinase Index No Result Required. CK-MB (CK-2) < 1.0 Troponin I < 0.02 Total Protein Albumin TSH Urine Color Yellow Urine Appearance Cloudy Urine pH 6.0 Ur Specific [place] 1.015 Urine Protein Negative Urine Glucose (UA) Negative Urine Ketones Negative Urine Blood 1+ H Urine Nitrite Negative Urine Bilirubin Negative Urine Urobilinogen 1.0 Ur Leukocyte Esterase Negative Urine WBC (Auto) 2 Urine RBC (Auto) 5-10 Urine Casts (Auto) 26 U Pathogenic Cast Auto 3-5 U Epithel Cells (Auto) 18.3 Urine Bacteria (Auto) 385.4 Urine Yeast (Auto) None seen Urine HCG, Qual Negative 08/24/19 08/24/19 08/24/19 16:15 16:15 16:15 WBC 8.4 RBC 5.44 H Hgb 14.0 Hct 43.7 MCV 80.4 MCH 25.8 MCHC 32.1 RDW 14.6 Plt Count 274 MPV 7.9 Absolute Neuts (auto) 5.6 Neutrophils % 66.5 D Lymphocytes % 24.6 Monocytes % 7.2 Eosinophils % 1.2 D Basophils % 0.5 Nucleated RBC % 0 PT with INR 13.10 H INR 1.11 H PTT (Actin FS) 38.1 H Sodium 138 Potassium 4.2 Chloride 105 Carbon Dioxide 30 Anion Gap 3 L BUN 12.5 Creatinine 1.2 Est GFR (CKD-EPI)AfAm 67.33 Est GFR (CKD-EPI)NonAf 58.09 Random Glucose 92 Calcium 8.9 Total Bilirubin 0.3 AST 24 ALT 53 Alkaline Phosphatase 149 H Creatine Kinase Creatine Kinase Index CK-MB (CK-2) Troponin I Total Protein 7.5 Albumin 3.8 TSH Urine Color Urine Appearance Urine pH Ur Specific [place] Urine Protein Urine Glucose (UA) Urine Ketones Urine Blood Urine Nitrite Urine Bilirubin Urine Urobilinogen Ur Leukocyte Esterase Urine WBC (Auto) Urine RBC (Auto) Urine Casts (Auto) U Pathogenic Cast Auto U Epithel Cells (Auto) Urine Bacteria (Auto) Urine Yeast (Auto) Urine HCG, Qual 08/24/19 16:15 WBC RBC Hgb Hct MCV MCH MCHC RDW Plt Count MPV Absolute Neuts (auto) Neutrophils % Lymphocytes % Monocytes % Eosinophils % Basophils % Nucleated RBC % PT with INR INR PTT (Actin FS) Sodium Potassium Chloride Carbon Dioxide Anion Gap BUN Creatinine Est GFR (CKD-EPI)AfAm Est GFR (CKD-EPI)NonAf Random Glucose Calcium Total Bilirubin AST ALT Alkaline Phosphatase Creatine Kinase Creatine Kinase Index CK-MB (CK-2) Troponin I Total Protein Albumin TSH 0.23 L Urine Color Urine Appearance Urine pH Ur Specific [place] Urine Protein Urine Glucose (UA) Urine Ketones Urine Blood Urine Nitrite Urine Bilirubin Urine Urobilinogen Ur Leukocyte Esterase Urine WBC (Auto) Urine RBC (Auto) Urine Casts (Auto) U Pathogenic Cast Auto U Epithel Cells (Auto) Urine Bacteria (Auto) Urine Yeast (Auto) Urine HCG, Qual 08/24/19 19:[address] shows no acute intracranial pathology. CXR shows no acute intra-thoracic pathology. 08/24/19 19:20 D/w Dr. Buchanan, who accepts the patient for admission and further work up under Dr. Burleson. (Flynn Jacob) Discharge - Discharge Information Problems reviewed: Yes - Admission Yes <Jatin Bosch - Last Filed: 08/24/19 18:55> <Flynn Jacob - Last Filed: 08/24/19 23:44> - Discharge Information Clinical Impression/Diagnosis: Syncope and collapse Condition: Stable
[2019-08-24 16:38] LABS: BASO % 0.5 % (0-2.0); EOS % 1.2 % (0-4.5); HEMATOCRIT 43.7 % (32.4-45.2); LYMPH % 24.6 % (8-40); MCH 25.8 pg (25.7-33.7); MCHC 32.1 g/dl (32.0-36.0); MEAN CELL VOLUME 80.4 fl (80-96); MEAN PLT VOLUME 7.9 fl (7.5-11.1); MONO % 7.2 % (3.8-10.2); NEUT % 66.5 % (42.8-82.8); PLATELET COUNT 274 K/MM3 (134-434); RBC 5.44 M/mm3 (3.60-5.2); RDW 14.6 % (11.6-15.6); WHITE BLOOD COUNT 8.4 K/mm3 (4.0-10.0)
[2019-08-24 16:39] LABS: EPI CELLS 18.3 /HPF (0-5/HPF); HYALINE CASTS 26 /lpf (0-8); URINE APPEARANCE CLOUDY; URINE BACTERIA 385.4 /hpf (NEGATIVE); URINE BILIRUBIN NEGATIVE (NEGATIVE); URINE COLOR YELLOW; URINE GLUCOSE (UA) NEGATIVE (NEGATIVE); URINE KETONE NEGATIVE (NEGATIVE); URINE LEUK ESTERASE NEGATIVE (NEGATIVE); URINE NITRITE NEGATIVE (NEGATIVE); URINE PROTEIN NEGATIVE (NEGATIVE); URINE WBC 2 /hpf (0-5)
[2019-08-24 16:50] LABS: INR 1.11 (0.83-1.09); PROTHROMBIN TIME (PATIENT) 13.1 SEC (9.7-13.0)
--- NOTE | 2019-08-24 16:52 | PDOC ---
Documentation entered by Sergio Mukherjee SCRIBE, acting as scribe for Miguelito Davis MD. Miguelito Davis MD: This documentation has been prepared by the Yaz talavera Nirvannie, SCRIBE, under my direction and personally reviewed by me in its entirety. I confirm that the documentation accurately reflects all work, treatment, procedures, and medical decision making performed by me. Attending Attestation - Resident Resident Name: Flynn Jacob - ED Attending Attestation I have performed the following: I have examined & evaluated the patient, The case was reviewed & discussed with the resident, I agree w/resident's findings & plan, Exceptions are as noted - HPI HPI: 08/24/19 16:26 CC: Syncope HPI: 34 years old past medical history significant for hypertension A. fib on Eliquis prediabetes syncopal episodes as a child and vertigo presents to the ED with unwitnessed episode of syncope patient was walking to the kitchen felt dizzy lightheaded awoke on the kitchen floor and after waking up patient was very confused did not remember her 's name or phone number had to use cool to contact her . This confusion lasted for greater than 30 minutes and currently patient does not feel 100% back to her baseline mental status she has never had this happen with her previous syncopal episodes usual state of health unclear whether she took her calcium channel and beta blockers today Allergies: NKDA Primary Care Physician: Dr. Galan Thermo Cementing Folder Operator: Dr. Santoyo 08/24/19 18:29 - Physicial Exam PE: 08/24/19 18:30 Vitals: Triage Vital signs reviewed General Appearance: Obese Head: Atraumatic, Eyes: Pupils equal reactive round, extraocular movement intact Neck: Supple; no Nucal rigidity Chest Wall: Nontender Cardiac: Regular rate and rhythym, no murmurs, no rubs, no gallops, Lungs: Clear to auscultation bilateral, good air movement bilaterally, Abdomen: Soft, non distended, normal bowel sounds, non tender to palpation Extremities: Full range of motion to all extremities, no cyanosis, clubbing, or edema Skin: Warm and dry, no rashes or lesions, no rash, no petechiae Neuro: AOX3; cranial Nerves 2-12 grossly intact, strength intact to all extremities, sensation intact to all extremities, gait normal Psych: Normal mood, normal affect - Medical Decision Making 08/24/19 18:31 Patient with concerning history of syncope versus seizure given postictal. No tongue biting no incontinence reported by patient We will check labs head CT patient will require observation overnight for telemetry monitoring. Heart Score/ECG Review - ECG Impressions Comment:: 08/24/19 18:30 EKG performed at 1510 demonstrates normal sinus rhythm no ST elevations or T wave inversions no evidence of WPW, Brugada or prolonged QT Interpreted by me.
[2019-08-24 16:53] LABS: ACTIVATED PTT 38.1 SECONDS (25.2-36.5)
[2019-08-24 17:02] LABS: ALBUMIN 3.8 g/dl (3.4-5.0); BILIRUBIN,TOTAL 0.3 mg/dL (0.2-1); BLOOD UREA NITROGEN 12.5 mg/dL (7-18); CALCIUM 8.9 mg/dL (8.5-10.1); CREATININE 1.2 mg/dL (0.55-1.3); POTASSIUM 4.2 mmol/L (3.5-5.1); TOT PROT 7.5 g/dl (6.4-8.2)
[2019-08-24 19:08] LABS: YEAST NONE SEEN (NEGATIVE)
--- NOTE | 2019-08-24 19:13 | PN ---
Teaching Attending Note Name of Resident: Ted Eaton ATTENDING PHYSICIAN STATEMENT I saw and evaluated the patient. I reviewed the resident's note and discussed the case with the resident. I agree with the resident's findings and plan as documented. SUBJECTIVE: Patient is a 34 year old woman with a PMH of Hypertension, Obstructive sleep apnea, Thyroid nodule (s/p biopsy), Afib (on Eliquis), Prediabetes, Syncopal episodes as a child and Vertigo who presents to the ER with unwitnessed episode of syncope. Patient was walking to the kitchen, felt dizzy, lightheaded and awoke on the kitchen floor. After waking up patient was very confused - did not remember her 's name or phone number. This confusion lasted for greater than 30 minutes and currently patient does not feel 100% back to her baseline mental status. She has never had this happen with her previous syncopal episodes. Unclear whether she took her calcium channel and beta blockers today. Denies fever, chill, SOB, chest pain, nausea, vomiting, abdominal pain, diarrhea or dysuria. No recent travel or sick contact. Denies tobacco, alcohol or illicit drug use. FH of DM in mother. LMP was 08/14/19. OBJECTIVE: Alert and not orthostatic Vital Signs Period Temp Pulse Resp BP Sys/Matthews Pulse Ox Last 24 Hr 98.2 F 89 16 138/78 99 HEENT: No Jaundice, eye redness or discharge, PERRLA, EOMI. Normocephalic, atraumatic. External ears are normal and hearing is grossly intact. No nasal discharge. Neck: Supple, nontender. No palpable adenopathy or thyromegaly. No JVD Chest: Good effort. Clear to auscultation and percussion. Heart: Regular. No S3, rub or murmur Abdomen: Not distended, soft, nontender and no HSM. No rebound or guarding. Normal bowel sounds. Ext: Peripheral pulses intact. No leg edema. Skin: Warm and dry. No petechiae, rash or ecchymosis. Neuro: Alert. Oriented x3. CN 2-12 grossly intact. Sensation grossly intact in all four extremities and DTR are symmetric. Psych: Appropriate mood and affect. Good insight. Home Medications Medication Instructions Recorded Cholecalciferol (Vitamin D3) 3,000 units PO DAILY 02/17/17 [Vitamin D -] Apixaban [Eliquis -] 5 mg PO BID #60 tablet 02/18/17 Diltiazem Cd [Cardizem Cd -] 120 mg PO DAILY #30 tab 02/18/17 Metoprolol Succinate [Toprol XL -] 50 mg PO DAILY #30 tab.sr.24h 10/09/18 Abnormal Lab Results 08/24/19 08/24/19 08/24/19 16:10 16:15 16:15 RBC 5.44 H PT with INR INR PTT (Actin FS) Anion Gap 3 L Alkaline Phosphatase 149 H TSH Urine Blood 1+ H 08/24/19 08/24/19 16:15 16:15 RBC PT with INR 13.10 H INR 1.11 H PTT (Actin FS) 38.1 H Anion Gap Alkaline Phosphatase TSH 0.23 L Urine Blood ASSESSMENT AND PLAN: 1. Syncope - Cause unclear. No acute abnormality on head CT or CXR. EKG shows NSR with no acute ST-T wave changes. Will get brain MRI, carotid doppler, urine toxicology, EEG, free T4, ECHO, consult cardiology and neurology. Monitor on telemetry and implement fall precautions. Will continue comprehensive care for all of patients comorbid conditions including Eliquis for Afib. 2. Prediabetes - Will implement sliding scale insulin regimen. Provide comprehensive diabetes care with patient teaching and counseling about the importance of adherence to prescribed diabetes regimen, euglycemia, eye care and foot care. 3. Morbid obesity Counseled on the risks associated with obesity. Will provide patient all the necessary assistance, counseling and positive reinforcement to facilitate weight loss. Consult hairspring ii inspector. 4. DVT prophylaxis - On Eliquis for DVT. 5. Advance directives - Full code
--- NOTE | 2019-08-24 23:54 | HP ---
CHIEF COMPLAINT: AMS PCP: Dr. Raul Galan HISTORY OF PRESENT ILLNESS: 34 y/o female PMH HTN, a fib on eliquis (since 2014), pre-DM, vertigo, hypothyroidism, obesity, Elhers Danlos, PCOS, ROSA ISELA on cpap, and syncope presents c/o syncope. She states that she walked out of her shower feeling a dizzy. She denies SOB and change of vision. In past syncopal episodes she experiences urinary incontinence; did not experience this in this instance but reports she urinated in the shower. She states that she woke up on the kitchen floor. She had a juice and Kind bar in case she was hypoglycemic and this did not reduce the symptoms. She also attempted her cpap but this too did not help her symptoms. The pt then attempted to call her to help get EMS as she could not speak ineligibly or recall how to use her phone. She started a recent diet but says she was well hydrated. She states her LMP was 14 Aug 2019 and was heavier than usual and lasted for 3 additional days. She has a h/o thyroid nodules. 4 were identified, 3 were benign and 1 unclear. 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 She intends to f/u here at [facility]. 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 Lives in private home with , x2 children, and cat Sexual Hx: Chlamydia 2013 Allergies: No Known Allergies Allergy (Verified 08/24/19 15:00) HOME MEDICATIONS: Medication Instructions Recorded Cholecalciferol (Vitamin D3) 3,000 units PO DAILY 02/17/17 [Vitamin D -] Apixaban [Eliquis -] 5 mg PO BID #60 tablet 02/18/17 Diltiazem Cd [Cardizem Cd -] 120 mg PO DAILY #30 tab 02/18/17 Metoprolol Succinate [Toprol XL -] 50 mg PO DAILY #30 tab.sr.24h 10/09/18 REVIEW OF SYSTEMS CONSTITUTIONAL: Absent: fever, chills, diaphoresis, generalized weakness, malaise, loss of appetite, weight change HEENT: Absent: rhinorrhea, nasal congestion, throat pain, throat swelling, difficulty swallowing, mouth swelling, ear pain, eye pain, visual changes CARDIOVASCULAR: Absent: chest pain, syncope, palpitations, irregular heart rate, lightheadedness , peripheral edema RESPIRATORY: Absent: cough, shortness of breath, dyspnea with exertion, orthopnea, wheezing, stridor, hemoptysis GASTROINTESTINAL: Absent: abdominal pain, abdominal distension, nausea, vomiting, diarrhea, constipation, melena, hematochezia GENITOURINARY: Absent: dysuria, frequency, urgency, hesitancy, hematuria, flank pain, genital pain MUSCULOSKELETAL: Absent: myalgia, arthralgia, joint swelling, back pain, neck pain SKIN: Absent: rash, itching, pallor HEMATOLOGIC/IMMUNOLOGIC: Absent: easy bleeding, easy bruising, lymphadenopathy, frequent infections ENDOCRINE: Absent: unexplained weight gain, unexplained weight loss, heat intolerance, cold intolerance NEUROLOGIC: Absent: headache, focal weakness or paresthesias, dizziness, unsteady gait, seizure, mental status changes, bladder or bowel incontinence PSYCHIATRIC: Absent: anxiety, depression, suicidal or homicidal ideation, hallucinations. PHYSICAL EXAMINATION Vital Signs - 24 hr 08/24/19 15:01 Temperature 98.2 F Pulse Rate 89 Respiratory 16 Rate Blood Pressure 138/78 O2 Sat by Pulse 99 Oximetry (%) Orthostatic BP NEGATIVE GENERAL: Awake, alert, and fully oriented, in no acute distress. Obese. HEAD: Normal with no signs of trauma. EYES: Pupils equal, round and reactive to light, extraocular movements intact, sclera anicteric, conjunctiva clear. No lid lag. EARS, NOSE, THROAT: Ears normal, nares patent, oropharynx clear without exudates. Moist mucous membranes. NECK: Normal range of motion, supple without lymphadenopathy, JVD, or masses. LUNGS: Breath sounds equal, clear to auscultation bilaterally. No wheezes, and no crackles. No accessory muscle use. HEART: Regular rate and rhythm, normal S1 and S2 without murmur, rub or gallop. ABDOMEN: Soft, nontender, not distended, normoactive bowel sounds, no guarding, no rebound, no masses. No hepatomegaly or splenomegaly. MUSCULOSKELETAL: Normal range of motion at all joints. No bony deformities or tenderness. No CVA tenderness. UPPER EXTREMITIES: 2+ pulses, warm, well-perfused. No cyanosis. No clubbing. No peripheral edema. LOWER EXTREMITIES: 2+ pulses, warm, well-perfused. No calf tenderness. No peripheral edema. NEUROLOGICAL: Cranial nerves II-XII intact. Normal speech. Normal gait. PSYCHIATRIC: Cooperative. Good eye contact. Appropriate mood and affect. SKIN: Warm, dry, normal turgor, no rashes or lesions noted, normal capillary refill. Laboratory Results - last 24 hr 08/24/19 08/24/19 08/24/19 16:10 16:10 16:15 WBC RBC Hgb Hct MCV MCH MCHC RDW Plt Count MPV Absolute Neuts (auto) Neutrophils % Lymphocytes % Monocytes % Eosinophils % Basophils % Nucleated RBC % PT with INR INR PTT (Actin FS) Sodium Potassium Chloride Carbon Dioxide Anion Gap BUN Creatinine Est GFR (CKD-EPI)AfAm Est GFR (CKD-EPI)NonAf Random Glucose Calcium Total Bilirubin AST ALT Alkaline Phosphatase Creatine Kinase 169 Creatine Kinase Index No Result Required. CK-MB (CK-2) < 1.0 Troponin I < 0.02 Total Protein Albumin TSH Urine Color Yellow Urine Appearance Cloudy Urine pH 6.0 Ur Specific [place] 1.015 Urine Protein Negative Urine Glucose (UA) Negative Urine Ketones Negative Urine Blood 1+ H Urine Nitrite Negative Urine Bilirubin Negative Urine Urobilinogen 1.0 Ur Leukocyte Esterase Negative Urine WBC (Auto) 2 Urine RBC (Auto) 5-10 Urine Casts (Auto) 26 U Pathogenic Cast Auto 3-5 U Epithel Cells (Auto) 18.3 Urine Bacteria (Auto) 385.4 Urine Yeast (Auto) None seen Urine HCG, Qual Negative 08/24/19 08/24/19 08/24/19 16:15 16:15 16:15 WBC 8.4 RBC 5.44 H Hgb 14.0 Hct 43.7 MCV 80.4 MCH 25.8 MCHC 32.1 RDW 14.6 Plt Count 274 MPV 7.9 Absolute Neuts (auto) 5.6 Neutrophils % 66.5 D Lymphocytes % 24.6 Monocytes % 7.2 Eosinophils % 1.2 D Basophils % 0.5 Nucleated RBC % 0 PT with INR 13.10 H INR 1.11 H PTT (Actin FS) 38.1 H Sodium 138 Potassium 4.2 Chloride 105 Carbon Dioxide 30 Anion Gap 3 L BUN 12.5 Creatinine 1.2 Est GFR (CKD-EPI)AfAm 67.33 Est GFR (CKD-EPI)NonAf 58.09 Random Glucose 92 Calcium 8.9 Total Bilirubin 0.3 AST 24 ALT 53 Alkaline Phosphatase 149 H Creatine Kinase Creatine Kinase Index CK-MB (CK-2) Troponin I Total Protein 7.5 Albumin 3.8 TSH Urine Color Urine Appearance Urine pH Ur Specific [place] Urine Protein Urine Glucose (UA) Urine Ketones Urine Blood Urine Nitrite Urine Bilirubin Urine Urobilinogen Ur Leukocyte Esterase Urine WBC (Auto) Urine RBC (Auto) Urine Casts (Auto) U Pathogenic Cast Auto U Epithel Cells (Auto) Urine Bacteria (Auto) Urine Yeast (Auto) Urine HCG, Qual 08/24/19 16:15 WBC RBC Hgb Hct MCV MCH MCHC RDW Plt Count MPV Absolute Neuts (auto) Neutrophils % Lymphocytes % Monocytes % Eosinophils % Basophils % Nucleated RBC % PT with INR INR PTT (Actin FS) Sodium Potassium Chloride Carbon Dioxide Anion Gap BUN Creatinine Est GFR (CKD-EPI)AfAm Est GFR (CKD-EPI)NonAf Random Glucose Calcium Total Bilirubin AST ALT Alkaline Phosphatase Creatine Kinase Creatine Kinase Index CK-MB (CK-2) Troponin I Total Protein Albumin TSH 0.23 L Urine Color Urine Appearance Urine pH Ur Specific [place] Urine Protein Urine Glucose (UA) Urine Ketones Urine Blood Urine Nitrite Urine Bilirubin Urine Urobilinogen Ur Leukocyte Esterase Urine WBC (Auto) Urine RBC (Auto) Urine Casts (Auto) U Pathogenic Cast Auto U Epithel Cells (Auto) Urine Bacteria (Auto) Urine Yeast (Auto) Urine HCG, Qual ASSESSMENT/PLAN: 34 y/o female PMH HTN, a fib on eliquis (since 2014), pre-DM, vertigo, hypothyroidism, obesity, Elhers Danlos, PCOS, ROSA ISELA on cpap, and syncope presents c/o syncope. CXR NEGATIVE. Head CT NEGATIVE. Orthostatic BP NEGATIVE. # Syncope - MRI - Carotid doppler - ECHO - EEG - Low TSH- Get free t3, t4 - Consult neuro - Consult endo #F/E/N - NS - Cont. to monitor - Regular diet # DVT prophylaxis - Heparin SQ # Disposition - Admit to tele/observation Ted Eaton MD Visit type - Emergency Visit Emergency Visit: Yes ED Registration Date: 08/24/19 Care time: The patient presented to the Emergency Department on the above date and was hospitalized for further evaluation of their emergent condition. - New Patient This patient is new to me today: Yes Date on this admission: 08/25/19 - Critical Care Critical Care patient: No ATTENDING PHYSICIAN STATEMENT I saw and evaluated the patient. I reviewed the resident's note and discussed the case with the resident. I agree with the resident's findings and plan as documented. SUBJECTIVE: OBJECTIVE: ASSESSMENT AND PLAN:
[2019-08-25 03:12] VITALS: BP 127/83; PULSE 65; TEMP 97.5
--- NOTE | 2019-08-25 04:21 | DS ---
Physical Exam: SUBJECTIVE: Patient seen and examined OBJECTIVE: Pt states she is feeling better, offers no complaints, and does not want to stay in ED. She states she must leave because her daughter has a Thanksgiving recital at school, which she cannot miss. Vital Signs Period Temp Pulse Resp BP Sys/Matthews Pulse Ox Last 24 Hr 97.5 F-98.2 F 65-89 16-18 127-138/78-83 98-99 PHYSICAL EXAM GENERAL: The patient is awake, alert, and fully oriented, in no acute distress. Obese. HEAD: Normal with no signs of trauma. EYES: PERRL, extraocular movements intact, sclera anicteric, conjunctiva clear. ENT: Ears normal, nares patent, oropharynx clear without exudates, moist mucous membranes. NECK: Trachea midline, full range of motion, supple. LUNGS: Breath sounds equal, clear to auscultation bilaterally, no wheezes, no crackles, no accessory muscle use. HEART: Regular rate and rhythm, S1, S2 without murmur, rub or gallop. ABDOMEN: Soft, nontender, nondistended, normoactive bowel sounds, no guarding, no rebound, no hepatosplenomegaly, no masses. EXTREMITIES: 2+ pulses, warm, well-perfused, no edema. NEUROLOGICAL: Cranial nerves II through XII grossly intact. Normal speech, gait not observed. PSYCH: Normal mood, normal affect. SKIN: Warm, dry, normal turgor, no rashes or lesions noted. LABS Laboratory Results - last 24 hr 08/24/19 08/24/19 08/24/19 16:10 16:10 16:15 WBC RBC Hgb Hct MCV MCH MCHC RDW Plt Count MPV Absolute Neuts (auto) Neutrophils % Lymphocytes % Monocytes % Eosinophils % Basophils % Nucleated RBC % PT with INR INR PTT (Actin FS) Sodium Potassium Chloride Carbon Dioxide Anion Gap BUN Creatinine Est GFR (CKD-EPI)AfAm Est GFR (CKD-EPI)NonAf Random Glucose Calcium Total Bilirubin AST ALT Alkaline Phosphatase Creatine Kinase 169 Creatine Kinase Index No Result Required. CK-MB (CK-2) < 1.0 Troponin I < 0.02 Total Protein Albumin TSH Urine Color Yellow Urine Appearance Cloudy Urine pH 6.0 Ur Specific [place] 1.015 Urine Protein Negative Urine Glucose (UA) Negative Urine Ketones Negative Urine Blood 1+ H Urine Nitrite Negative Urine Bilirubin Negative Urine Urobilinogen 1.0 Ur Leukocyte Esterase Negative Urine WBC (Auto) 2 Urine RBC (Auto) 5-10 Urine Casts (Auto) 26 U Pathogenic Cast Auto 3-5 U Epithel Cells (Auto) 18.3 Urine Bacteria (Auto) 385.4 Urine Yeast (Auto) None seen Urine HCG, Qual Negative 08/24/19 08/24/19 08/24/19 16:15 16:15 16:15 WBC 8.4 RBC 5.44 H Hgb 14.0 Hct 43.7 MCV 80.4 MCH 25.8 MCHC 32.1 RDW 14.6 Plt Count 274 MPV 7.9 Absolute Neuts (auto) 5.6 Neutrophils % 66.5 D Lymphocytes % 24.6 Monocytes % 7.2 Eosinophils % 1.2 D Basophils % 0.5 Nucleated RBC % 0 PT with INR 13.10 H INR 1.11 H PTT (Actin FS) 38.1 H Sodium 138 Potassium 4.2 Chloride 105 Carbon Dioxide 30 Anion Gap 3 L BUN 12.5 Creatinine 1.2 Est GFR (CKD-EPI)AfAm 67.33 Est GFR (CKD-EPI)NonAf 58.09 Random Glucose 92 Calcium 8.9 Total Bilirubin 0.3 AST 24 ALT 53 Alkaline Phosphatase 149 H Creatine Kinase Creatine Kinase Index CK-MB (CK-2) Troponin I Total Protein 7.5 Albumin 3.8 TSH Urine Color Urine Appearance Urine pH Ur Specific [place] Urine Protein Urine Glucose (UA) Urine Ketones Urine Blood Urine Nitrite Urine Bilirubin Urine Urobilinogen Ur Leukocyte Esterase Urine WBC (Auto) Urine RBC (Auto) Urine Casts (Auto) U Pathogenic Cast Auto U Epithel Cells (Auto) Urine Bacteria (Auto) Urine Yeast (Auto) Urine HCG, Qual 08/24/19 16:15 WBC RBC Hgb Hct MCV MCH MCHC RDW Plt Count MPV Absolute Neuts (auto) Neutrophils % Lymphocytes % Monocytes % Eosinophils % Basophils % Nucleated RBC % PT with INR INR PTT (Actin FS) Sodium Potassium Chloride Carbon Dioxide Anion Gap BUN Creatinine Est GFR (CKD-EPI)AfAm Est GFR (CKD-EPI)NonAf Random Glucose Calcium Total Bilirubin AST ALT Alkaline Phosphatase Creatine Kinase Creatine Kinase Index CK-MB (CK-2) Troponin I Total Protein Albumin TSH 0.23 L Urine Color Urine Appearance Urine pH Ur Specific [place] Urine Protein Urine Glucose (UA) Urine Ketones Urine Blood Urine Nitrite Urine Bilirubin Urine Urobilinogen Ur Leukocyte Esterase Urine WBC (Auto) Urine RBC (Auto) Urine Casts (Auto) U Pathogenic Cast Auto U Epithel Cells (Auto) Urine Bacteria (Auto) Urine Yeast (Auto) Urine HCG, Qual HOSPITAL COURSE: Date of Admission:08/24/19 Pt BIBEMS s/p syncope and admitted to r/o poss. neuro and cardiac causes. Pt currently asymptomatic decided she prefers not to spend evening in ED and signed out AMA. 34 y/o female PMH HTN, a fib on eliquis (since 2014), pre-DM, vertigo, hypothyroidism, obesity, Elhers Danlos, PCOS, ROSA ISELA on cpap, and syncope presents c/o syncope. She states that she walked out of her shower feeling a dizzy. She denies SOB and change of vision. In past syncopal episodes she experiences urinary incontinence; did not experience this in this instance but reports she urinated in the shower. She states that she woke up on the kitchen floor. She had a juice and Kind bar in case she was hypoglycemic and this did not reduce the symptoms. She also attempted her cpap but this too did not help her symptoms. The pt then attempted to call her to help get EMS as she could not speak ineligibly or recall how to use her phone. She started a recent diet but says she was well hydrated. She states her LMP was 14 Aug 2019 and was heavier than usual and lasted for 3 additional days. She has a h/o thyroid nodules. 4 were identified, 3 were benign and 1 unclear. 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 She intends to f/u here at [facility]. Plan to - MRI - Carotid doppler - ECHO - EEG - Low TSH- Get free t3, t4 - Consult neuro - Consult endo Date of Discharge: 08/25/19 Minutes to complete discharge: 40 Discharge Summary Problems reviewed: Yes Reason For Visit: SYNCOPE AND COLLAPSE Current Active Problems Syncope and collapse (Acute) Condition: Stable - Instructions Diet, Activity, Other Instructions: Pt requested to leave AMA. She was advised of risks of leaving and benefits of continuing medical care. She states she will f/u with her primary care provider. She then signed out AMA. Disposition: AGAINST MEDICAL ADVICE - Home Medications Comprehensive Discharge Medication List: Ambulatory Orders Cholecalciferol (Vitamin D3) [Vitamin D -] 3,000 units PO DAILY 02/17/17 Apixaban [Eliquis -] 5 mg PO BID #60 tablet 02/18/17 Diltiazem Cd [Cardizem Cd -] 120 mg PO DAILY #30 tab 02/18/17 Metoprolol Succinate [Toprol XL -] 50 mg PO DAILY #30 tab.sr.24h 10/09/18 This patient is new to me today: Yes Date on this admission: 08/25/19 Emergency Visit: Yes ED Registration Date: 08/24/19 Care time: The patient presented to the Emergency Department on the above date and was hospitalized for further evaluation of their emergent condition. Critical Care patient: No - Discharge Referral Referred to [facility] Med P.C.: No ATTENDING PHYSICIAN STATEMENT I saw and evaluated the patient. I reviewed the resident's note and discussed the case with the resident. I agree with the resident's findings and plan as documented. SUBJECTIVE: OBJECTIVE: ASSESSMENT AND PLAN:
[2019-08-25] MEDS ORDERED: HEPARIN NA (PORCINE) 5,000 UNITS/ML 1ML VIAL SQ SCH (06:00)
--- NOTE | 2019-08-25 10:49 | EKG ---
Test Reason : Blood Pressure : / mmHG Vent. Rate : 072 BPM Atrial Rate : 072 BPM P-R Int : 186 ms QRS Dur : 096 ms QT Int : 390 ms P-R-T Axes : 055 042 023 degrees QTc Int : 427 ms NORMAL SINUS RHYTHM WITH SINUS ARRHYTHMIA NORMAL ECG WHEN COMPARED WITH ECG OF 08-OCT-2018 15:41, VENT. RATE HAS DECREASED BY 35 BPM Confirmed by OLIVIA YEBOAH, FREDRICK ([id number]) on 08/25/2019 10:48:54 AM Referred By: Confirmed By:FREDRICK BAKER MD
== END 2019-08-25 01:00 | disposition left against medical advice (07) ==
LOC: JER 14:55 → JERBED 18:56
PROVIDERS: ADMIT Internal Medicine; ATTEND Internal Medicine
DX: R55 Syncope and collapse (principal); I10 Essential (primary) hypertension; I48.91 Unspecified atrial fibrillation; Z79.01 Long term (current) use of anticoagulants; R73.03 Prediabetes; G47.33 Obstructive sleep apnea (adult) (pediatric); E05.90 Thyrotoxicosis, unspecified without thyrotoxic crisis or storm; E28.2 Polycystic ovarian syndrome; E04.1 Nontoxic single thyroid nodule; Q79.60 Ehlers-Danlos syndrome, unspecified; E66.01 Morbid (severe) obesity due to excess calories; Z68.43 Body mass index [BMI] 50.0-59.9, adult; Z99.89 Dependence on other enabling machines and devices
CPT/HCPCS: 36415; 70450-TC; 71046-TC-FY; 80053; 81003; 82550; 82553; 84443; 84484; 84703; 85025; 85610; 85730; 87086; 93005; 93010; 99283-25; G0378